=== PATIENT | female | born 1980 | race Caucasian/White ===

== ENCOUNTER 2019-09-16 11:29 | Outpatient (CLI) | payer BC, SELFPAY | END 2019-09-16 11:30 | disposition home or self-care (01) | LOC: CHSLAB 11:35 | PROVIDERS: PCP Nurse Practitioner Family; Visit Provider Specialist | DX: D22.61 Melanocytic nevi of right upper limb, including shoulder (principal) | CPT/HCPCS: 88305; 88342 ==

== ENCOUNTER 2019-11-22 01:14 | Outpatient (CLI) | payer BC, SELFPAY ==
[2019-11-22 16:42] LABS: SARS-CoV-2 RNA PCR Negative
== END 2019-11-22 01:15 | disposition home or self-care (01) ==
LOC: ANHCOVIDDT 01:14
PROVIDERS: PCP Nurse Practitioner Family; Visit Provider Surgery
DX: Z01.812 Encounter for preprocedural laboratory examination (principal); Z20.828 Contact with and (suspected) exposure to other viral communicable diseases
CPT/HCPCS: 87635; C9803; U0003

== ENCOUNTER 2019-11-25 00:19 | Day surgery (SDC) | payer BC, SELFPAY ==
[2019-11-12 15:27] VITALS: BMI 39.8
[2019-11-25 10:35] VITALS: BMI 38.7
[2019-11-25 11:02] VITALS: BP 123/85; PULSE 103; RESP 20; TEMP 36.6; O2SAT 99
[2019-11-25] MEDS: LACTATED RINGERS 1,000 ML 30 ML IV CONT (11:15)
--- NOTE | 2019-11-25 11:34 | WPDANESEPPF ---
Anes - Initial Pre Proc Eval Procedure: Operation Date: 11/25/19 12:00 Proposed Procedures p Excision of Superficial Lipoma/Skin Papilloma Right Upper Inner Thigh - Eric Parisi MD Date/Time: 11/25/19 11:34 Surgeon: Eric Parisi MD Pre Op Diagnosis: Right Thigh Lipoma/Skin Papilloma Patient Data Age: 39 Gender: F Height: 1.63 m Weight: 102.5 kg Last Vital Signs Temp 36.6 C 11/25/19 11:02 Pulse 103 H 11/25/19 11:02 Resp 20 11/25/19 11:02 BP 123/85 11/25/19 11:02 Pulse Ox 99 11/25/19 11:02 Allergies Allergy/AdvReac Type Severity Reaction Status Date / Time Sulfa (Sulfonamide Allergy Unknown Hives / Verified 11/25/19 10:59 Antibiotics) Red Face Sulfonamides Allergy Intermediate HIVES/RED Uncoded 11/25/19 10:59 FACE/BURNING Home Medications Medication Instructions Recorded Confirmed Type cholecalciferol (vitamin D3) 25 1,000 unit PO DAILY 04/29/19 11/25/19 History mcg (1,000 unit) capsule cyclobenzaprine 10 mg tablet 10 mg PO BID PRN tablet 04/29/19 11/25/19 History fexofenadine-pseudoephedrine ER 1 tablet PO DAILY 04/29/19 11/25/19 History 180 mg-240 mg tablet,ext.release 24 hr fluticasone propionate 50 1 spray NASAL DAILY #18.2 ml 04/29/19 11/25/19 Rx mcg/actuation nasal spray,suspension gabapentin 300 mg capsule 300 mg PO TID 04/29/19 11/25/19 History hydrocodone 10 mg-acetaminophen 1 tablet PO Q8H PRN 04/29/19 11/25/19 History 325 mg tablet multivitamin 1 tablet PO DAILY 04/29/19 11/25/19 History omeprazole 40 mg PO DAILY PRN 11/12/19 11/25/19 History Patient hx anesthesia problems: none Family hx anesthesia problems: none PMFSH Past Medical History Medical History (Updated 11/24/19 @ 09:51 by Fahad Garcia DO) Cervicalgia Chronic, continuous use of opioids TEODORO (generalized anxiety disorder) GERD (gastroesophageal reflux disease) Nicotine dependence with current use Obesity Radiculopathy, cervical region Social History Social History Years smoked: 20 Smoking status: Current every day smoker Alcohol intake: current Substance use: never Additional occupation/education comments: [employer] Gender identity (if verbalized by the patient): Female Spiritual care concerns: No Anes - Eval Final PreProcedure Day of Procedure 11/25/19 11:34 Patient weight: obese Heart: regular rate and rhythm Lungs: clear to auscultation and normal air movement Airway: Mallampati scale class II Neurological: alert and oriented Last oral intake: >/= 8 hours ASA classification: III Emergent: no Anesthetic plan: proceed Anesthesia type and monitoring: general GIVS and standard monitoring Informed Consent: The patient's anesthetic plan and its attendant risks and benefits were discussed with the patient/family/POA. Questions were solicited and answers provided to the satisfaction of the patient/family/POA.
--- NOTE | 2019-11-25 12:07 | WPDHPUPDATE1 ---
History and Physical Update Update Date/Time: 11/25/19 12:07 History and Physical has been reviewed, including an updated exam of the patient. There are NO changes in the patient's condition. Risks, benefits, and alternatives have been discussed and questions answered. Patient agrees to proceed with procedure.
[2019-11-25] MEDS: ceFAZolin 2 GM/D5W 50 ML 2 GM/50 ML BAG IVPB (12:24)
[2019-11-25] MEDS: BUPIVACAINE/EPINEPHRINE 0.5% 30 ML VIAL INFILTRATE (12:54)
[2019-11-25 13:30] VITALS: BP 85/50; PULSE 97; RESP 16; TEMP 36.3; O2SAT 97
--- NOTE | 2019-11-25 13:40 | P.OP_ITS ---
Procedure Note - Detailed Date of procedure: 11/25/19 Pre-op diagnosis: Right Thigh Lipoma/Skin Papilloma Post-op diagnosis: same Procedure performed: Excision of skin lesion and underlying lipoma 5 x 5 cm lipoma ( skin ellipse was 3 by 2.5 cm) Description of procedure: The patient was placed in the lithotomy position. After a surgical time out confirming patient and procedure the patient was prepped and draped in the usual sterile fashion. Local anesthetic was administered subcutaneously. The lesion measured 3.0 X 2.5 cm (Skin) and the fatty tumor 5.5 X 5.5 cm An elliptical incision was made around the lesion taking a thin margin c ircumferentially. I dissected down to the deep subcutaneous tissues and then completely excised the lesion. Bleeding was controlled with electrocautery. The wound was closed in two layers. An un-dyed 2-0 vicryl subcutaneous and deep dermal and then a 4-0 undyed Monocryl running subcuticular closure was completed. Surgical glue applied as dressing. Patient tolerated this well. Anesthesia: local and other (GIVS) Surgeon: Eric Parisi MD Composing Machine Operator: BELEM Carmona, OR 1st assist Estimated blood loss (mL): 5 Drains: No Packing: No Pathology: yes (Nodular skin lesion overlying the a lipoma) Complications: No immediate complications Condition: stable Disposition: same day Findings: No signs of infection. There was a nodular skin lesion which appeared to be filled with fatty tissue consistent with the upper portions of a underlying lipoma. There may be some chronic skin changes or epidermal cyst on the skin excised.
[2019-11-25 14:00] VITALS: BP 112/69; PULSE 76; RESP 14
--- NOTE | 2019-11-25 14:15 | SUR.PHASEII ---
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
[2019-11-25 14:30] VITALS: BP 115/79; PULSE 74; RESP 16
== END 2019-11-25 15:08 | disposition home or self-care (01) ==
PROVIDERS: PCP Nurse Practitioner Family; Visit Provider Surgery
PROC: (CPT 27337; principal; 2019-11-25 12:00)
DX: D17.23 Benign lipomatous neoplasm of skin and subcutaneous tissue of right leg (principal); L91.8 Other hypertrophic disorders of the skin; K21.9 Gastro-esophageal reflux disease without esophagitis; M54.12 Radiculopathy, cervical region; Z79.891 Long term (current) use of opiate analgesic; F17.210 Nicotine dependence, cigarettes, uncomplicated; E66.9 Obesity, unspecified; Z68.38 Body mass index [BMI] 38.0-38.9, adult
CPT/HCPCS: 27337; 88304; J0690; J1100; J2250; J2405; J2704; J3010; J7120

== ENCOUNTER 2020-03-09 10:11 | Outpatient (CLI) | payer BC, SELFPAY ==
--- NOTE | ~2020-03-09 | MM_ITS ---
EXAMINATION: MM screening lorene BI w jacqueline HISTORY: Screening mammogram TECHNIQUE: Craniocaudal and mediolateral oblique 3-D tomosynthesis images were obtained and synthetic 2-D images were generated. CAD analysis was submitted and interpreted. COMPARISON: None, baseline BREAST PARENCHYMAL COMPOSITION: There are scattered areas of fibroglandular density. FINDINGS: Scattered benign-appearing calcifications are present. There is no evidence of suspicious m ass, calcification, or architectural distortion to suggest malignancy in either breast. IMPRESSION: 1. No mammographic evidence of malignancy. 2. Recommend routine screening mammography in one year. BI-RADS Category 2: Benign finding(s). Reviewed, dictated and finalized at location A.
--- NOTE | ~2020-03-09 | XR_ITS ---
XR foot LT min 3V DATE: 03/09/2020 10:35 INDICATION: Left foot pain for 6 weeks TECHNIQUE: 4 views COMPARISON: None FINDINGS: Mild osteoarthritis at the first metatarsophalangeal joint. Prominent plantar and posterior calcaneal enthesopathy. No fracture, dislocation, periosteal reaction or bone destruction. IMPRESSION: Prominent plantar and posterior calcaneal enthesopathy Mild osteoarthritis at first metatarsophalangeal joint Reviewed, dictated and finalized at location B.
== END 2020-03-09 10:12 | disposition home or self-care (01) ==
PROVIDERS: PCP Nurse Practitioner Family; Visit Provider Nurse Practitioner Family
DX: Z12.31 Encounter for screening mammogram for malignant neoplasm of breast (principal); M79.672 Pain in left foot
CPT/HCPCS: 73630; 77063; 77067

== ENCOUNTER 2020-11-29 15:43 | Outpatient (CLI) | payer BC, SELFPAY ==
[2020-11-29 16:18] LABS: Basophils Absolute Auto 0.03 K/mm3 (0.00-0.10); Basophils Percent Auto 0.3 % (0.0-1.0); Eosinophils Absolute Auto 0.17 K/mm3 (0.02-0.50); Eosinophils Percent Auto 1.8 % (1.0-6.0); Hematocrit 37.1 % (35.0-49.0); Hemoglobin 11.7 g/dL (12.0-15.0); Immature Granulocyte Absolute 0.03 K/mm3 (0.00-0.00); Immature Granulocyte Percent A 0.3 % (0.0-0.0); Lymphocytes Absolute Auto 2.57 K/mm3 (1.10-4.50); Lymphocytes Percent Auto 27.5 % (18.0-42.0); Mean Corpuscular HGB Conc 31.5 g/dL (32.0-36.0); Mean Corpuscular Hemoglobin 28.2 pg (27.0-31.0); Mean Corpuscular Volume 89.4 fL (78.0-102.0); Mean Platelet Volume 8.8 fl (9.2-11.8); Monocytes Absolute Auto 0.66 K/mm3 (0.10-0.90); Monocytes Percent Auto 7.1 % (2.0-11.0); Neutrophils Absolute Auto 5.9 K/mm3 (1.7-7.2); Platelet Count Result 416 K/mm3 (150-420); Red Blood Count 4.15 M/mm3 (4.20-5.40); Red Cell Distribution Width 15.6 % (11.6-14.4); White Blood Count 9.3 K/mm3 (4.8-10.8)
[2020-11-29 17:42] LABS: Alanine Aminotransferase 37 U/L (14-59); Albumin Level 3.4 g/dL (3.4-5.0); Alkaline Phosphatase 116 U/L (46-116); Anion Gap 9 mmol/L (8-16); Aspartate Amino Transferase 18 U/L (15-37); Bilirubin,Total 0.2 mg/dL (0.00-1.00); Blood Urea Nitrogen 6 mg/dL (7-18); Calcium 8.7 mg/dL (8.5-10.1); Carbon Dioxide 27 mmol/L (21-32); Chloride 101 mmol/L (98-108); Estimated Glomerular Filt Rate > 60; Glucose 76 mg/dL (70-99); NT Pro B Type Natriuretic Pept 120 pg/mL (0-125); Osmolality Calculated 280 mOsm/kg (285-295); Potassium 4.3 mmol/L (3.5-5.1); Sodium 137 mmol/L (136-145); Thyroid Stimulating Hormone 1.52 uIU/mL (0.36-3.74); Total Protein 6.7 g/dL (6.4-8.2)
== END 2020-11-29 15:44 | disposition home or self-care (01) ==
LOC: CHSLAB 15:46
PROVIDERS: PCP Nurse Practitioner Family; Visit Provider Nurse Practitioner Family
DX: R60.0 Localized edema (principal)
CPT/HCPCS: 36415; 80053; 83880; 84443; 85025

== ENCOUNTER 2021-06-06 14:54 | Outpatient (CLI) | payer MEDICAID, SELFPAY ==
[2021-06-06 16:16] LABS: SARS-CoV-2 RNA PCR Positive (Negative)
== END 2021-06-06 14:55 | disposition home or self-care (01) ==
LOC: CHSLAB 14:56
PROVIDERS: PCP Nurse Practitioner Family; Visit Provider Nurse Practitioner Family
DX: U07.1 COVID-19 (principal); R09.81 Nasal congestion
CPT/HCPCS: C9803; U0003; U0005

== ENCOUNTER 2021-11-20 23:23 | Emergency (ER) | payer BC, OTHER, SELFPAY ==
--- NOTE | ~2021-11-20 | XR_ITS ---
EXAMINATION: XR hand LT min 3V DATE: 11/20/2021 23:53 INDICATION: Radial sided left hand pain post fall TECHNIQUE: Posteroanterior, oblique and lateral views of the left hand were obtained. COMPARISON: None. FINDINGS: Bone alignment is normal. No fracture. Polyarticular osteoarthritis, mild to moderate severity at the first carpometacarpal joint and mild at the triscaphe, first metacarpophalangeal and multiple interp halangeal joints. Soft tissues are unremarkable. IMPRESSION: 1. Polyarticular osteoarthritis, mild to moderate severity at the first carpometacarpal joint.. No ac neto osseous abnormality. Reviewed, dictated and finalized at location A. IMPRESSION: 1. Polyarticular osteoarthritis, mild to moderate severity at the first carpome tacarpal joint.. No acute osseous abnormality.
--- NOTE | 2021-11-20 23:29 | ED.FALL ---
HPI - Fall General Chief Complaint: Unspecified Stated Complaint: fell Time Seen by Provider: 11/20/21 23:30 Source: patient History of Present Illness HPI Narrative: 41-year-old female with a history of GERD, cervical radiculopathy, fell 2 days ago after she missed the last step and fell on her outstretched arms. No head injury. No loss of consciousness. She presents to the ER with -- pain in the left over thenar eminence -- pain in right hand -- bilateral knee pain with left greater than the right. The patient is able to walk without any difficulty. -- Extensive abrasions over both knees, hands, left leg, left foot and right thigh complaint: fall Onset (ago): day(s) ( 2 days ago) Fall from: down stairs (#) Fall witnessed: no Place fall occurred: home Loss of consciousness: none Prolonged down time: no Symptoms prior to fall: none Context: tripped/slipped Location of injury - extremities: Left: lower leg and ankle, Right: thigh and Bilateral: hand and knee Severity: mild Quality: aching Associated symptoms (after fall): denies Related Data Home Medications Medication Instructions Recorded Confirmed gabapentin 300 mg capsule 300 mg PO TID 04/29/19 02/03/20 multivitamin (One Daily 1 tablet PO DAILY 04/29/19 02/03/20 Multivitamin tablet) cyclobenzaprine 10 mg tablet 10 mg PO TID PRN 09/13/20 tramadol 50 mg tablet 50 mg PO QID PRN 11/29/20 Allergies Allergy/AdvReac Type Severity Reaction Status Date / Time Sulfa (Sulfonamide Allergy Unknown Hives / Verified 11/20/21 23:36 Antibiotics) Red Face Sulfonamides Allergy Intermediate HIVES/RED Uncoded 11/20/21 23:36 FACE/BURNING Review of Systems Review of Systems: All systems reviewed & are unremarkable except as noted in HPI and below Constitutional: Constitutional: Reports as per HPI and Reports no additional constitutional complaints Eyes: Eyes: Reports as per HPI and Reports no additional eye complaints ENT: Reports system reviewed and no additional complaints, except as documented and Reports as per HPI Cardiovascular: Cardiovascular: Reports as per HPI and Reports no additional cardiovascular complaints Respiratory: Respiratory: Reports as per HPI and Reports no additional respiratory complaints Gastrointestinal: Gastrointestinal: Reports as per HPI and Reports no additional gastrointestinal complaints Genitourinary: Genitourinary: Reports no additional female genitourinary complaints and Reports as per HPI Musculoskeletal: Musculoskeletal: Reports no additional musculoskeletal complaints Comments: complains bilateral knee pain and bilateral hand pain worse on left thenar eminence Integumentary/Breasts: Comments: extensive abrasions over left foot, left lateral leg and right thigh. Minimal abrasions over both hands and knees Neurologic: Reports system reviewed and no additional complaints, except as documented and Reports as per HPI Psychiatric: Psychiatric: Reports no additional psychiatric complaints and Reports as per HPI Endocrine: Endocrine: Reports no additional endocrine complaints and Reports as per HPI Hematologic/Lymphatic: Hematologic/Lymphatic: Reports no additional hematologic/lymphatic complaints and Reports as per HPI Allergic/Immunologic: Allergic/Immunologic: Reports no additional allergic/immunologic complaints and Reports as per HPI PMFSH Past Medical History Medical History Allergic rhinitis Callus (Unknown) Cervicalgia Chronic, continuous use of opioids Dyspnea on exertion Enthesopathy of left foot Fibroma of right thigh TEODORO (generalized anxiety disorder) GERD (gastroesophageal reflux disease) Left foot pain Lower extremity edema Nicotine dependence with current use Obesity Papilloma Radiculopathy, cervical region Right ear pain Right foot pain Sinusitis Sinusitis Wound dehiscence Surgical History Surgical History (Reviewed 11/20/21 @ 23:4
[2021-11-20 23:31] VITALS: BP 145/100; PULSE 105; RESP 16; TEMP 36.4; O2SAT 98
[2021-11-21] MEDS: HYDROcodone/acetaminophen (*CRX) 5-325 MG TABLET 1 TAB PO (00:32)
[2021-11-21 00:42] VITALS: BP 131/82; PULSE 95; RESP 16; O2SAT 99
== END 2021-11-21 00:43 | disposition home or self-care (01) ==
PROVIDERS: Emergency Provider Internal Medicine Critical Care Medicine; PCP Nurse Practitioner Family
DX: M79.642 Pain in left hand (principal); T14.8XXA Other injury of unspecified body region, initial encounter; W19.XXXA Unspecified fall, initial encounter
CPT/HCPCS: 73130; 99283; A9270

== ENCOUNTER 2021-11-30 18:43 | Outpatient (CLI) | payer BC, OTHER, SELFPAY ==
--- NOTE | ~2021-11-30 | XR_ITS ---
EXAM: XR ankle LT min 3V DATE: 11/30/2021 19:05 HISTORY: fall 2 weeks ago causing ankle pain and swelling . COMPARISON: None available. FINDINGS: Normal mineralization. No fracture or dislocation. No lytic or blastic lesion. Joint space s are maintained. Marked plantar and Achilles enthesopathy. No erosion or periosteal change. Soft tis sues within normal limits. IMPRESSION: No acute or subacute osseous finding in the left ankle. Reviewed, dictated and finalized at location K.
== END 2021-11-30 18:44 | disposition home or self-care (01) ==
LOC: CHSIMG 18:45
PROVIDERS: PCP Nurse Practitioner Family; Visit Provider Nurse Practitioner Family
DX: S93.402A Sprain of unspecified ligament of left ankle, initial encounter (principal)
CPT/HCPCS: 73610

== ENCOUNTER 2022-06-22 09:44 | Outpatient (CLI) | payer BC, OTHER, SELFPAY ==
[2022-06-22 10:00] LABS: Hematocrit 40.5 % (35.0-49.0); Hemoglobin 13.2 g/dL (12.0-15.0); Mean Corpuscular HGB Conc 32.6 g/dL (32.0-36.0); Mean Corpuscular Hemoglobin 30.8 pg (27.0-31.0); Mean Corpuscular Volume 94.6 fL (78.0-102.0); Mean Platelet Volume 8.8 fl (9.2-11.8); Platelet Count Result 348 K/mm3 (150-420); Red Blood Count 4.28 M/mm3 (4.20-5.40); Red Cell Distribution Width 13.6 % (11.6-14.4); White Blood Count 9.8 K/mm3 (4.8-10.8)
[2022-06-22 10:14] LABS: Add Urine Microscopic? NO; Appearance Urine Clear (Clear); Bilirubin Urine Negative (Negative); Blood Urine Negative (Negative); Color Urine Light Yellow (Yellow); Glucose Urine UA Negative (Negative); Ketones Urine Negative (Negative); Leukocyte Esterase Ur Negative LEU/UL (Negative); Nitrate Urine Negative (Negative); Protein Urine Negative (Negative); Urobilinogen Urine 0.2 mg/dL (0.2-1.0)
[2022-06-22 10:36] LABS: Alanine Aminotransferase 31 U/L (14-59); Albumin Level 3.4 g/dL (3.4-5.0); Alkaline Phosphatase 124 U/L (46-116); Anion Gap 7 mmol/L (8-16); Aspartate Amino Transferase 16 U/L (15-37); Bilirubin,Total 0.3 mg/dL (0.00-1.00); Blood Urea Nitrogen 8 mg/dL (7-18); Calcium 8.5 mg/dL (8.5-10.1); Carbon Dioxide 28 mmol/L (21-32); Chloride 103 mmol/L (98-108); Estimated Glomerular Filt Rate > 60; Glucose 94 mg/dL (70-99); Osmolality Calculated 284 mOsm/kg (285-295); Potassium 4.4 mmol/L (3.5-5.1); Sodium 138 mmol/L (136-145); Total Protein 7.1 g/dL (6.4-8.2)
== END 2022-06-22 09:45 | disposition home or self-care (01) ==
LOC: CHSLAB 09:48
PROVIDERS: PCP Nurse Practitioner Family; Visit Provider Nurse Practitioner Family
DX: M54.50 Low back pain, unspecified (principal)
CPT/HCPCS: 36415; 80053; 81003; 85027

== ENCOUNTER 2022-06-28 12:23 | Outpatient (CLI) | payer BC, OTHER, SELFPAY ==
[2022-06-28 12:57] LABS: Pregnancy On Board Control Positive; Urine Pregnancy Test Negative
[2022-06-28 13:23] LABS: Alkaline Phosphatase 113 U/L (46-116)
[2022-07-02 22:05] LABS: Vitamin D 25 Hydroxy 6 ng/mL (30-100)
[2022-07-04 13:25] LABS: Parathyroid Intact 63 pg/mL (14-64)
[2022-07-05 12:11] LABS: Alkaline Phosphatase 97 U/L (31-125); Macrohepatic Isoenzymes 0 % (<=0)
== END 2022-06-28 12:24 | disposition home or self-care (01) ==
LOC: CHSLAB 12:24
PROVIDERS: PCP Nurse Practitioner Family; Visit Provider Nurse Practitioner Family
DX: M54.50 Low back pain, unspecified (principal); M54.2 Cervicalgia; R74.8 Abnormal levels of other serum enzymes; Z79.899 Other long term (current) drug therapy
CPT/HCPCS: 36415; 81025; 82306; 83970; 84075; 84080

== ENCOUNTER 2022-12-04 16:46 | Outpatient (CLI) | payer OTHER, BC, SELFPAY ==
--- NOTE | ~2022-12-04 | XR_ITS ---
EXAM: XR ankle RT min 3V DATE: 12/04/2022 17:13 HISTORY: M76.60 - Achilles tendinitis, unspecified leg . COMPARISON: None available. FINDINGS: Normal mineralization. No fracture or dislocation. No lytic or blastic lesion. Mild scatte red degenerative changes. Moderate Achilles and plantar enthesopathy. No erosion or periosteal change . Soft tissues within normal limits. IMPRESSION: Moderate Achilles and plantar enthesopathy. Reviewed, dictated and finalized at location K.
[2022-12-06 21:33] LABS: Vitamin D 25 Hydroxy 28 ng/mL (30-100)
== END 2022-12-04 16:47 | disposition home or self-care (01) ==
LOC: CHSLAB 16:53
PROVIDERS: PCP Nurse Practitioner Family; Visit Provider Nurse Practitioner Family
DX: M76.60 Achilles tendinitis, unspecified leg (principal); E55.9 Vitamin D deficiency, unspecified
CPT/HCPCS: 36415; 73610; 82306

== ENCOUNTER 2022-12-18 16:08 | Outpatient (RCR) | payer BC, OTHER, SELFPAY ==
--- NOTE | 2022-12-18 17:16 | PTOPEVAL1 ---
Assessment and note entered by Adela Carvajal, PT Evaluation Information Assessment Status Evaluation Diagnosis Achilles Tendonitis Subjective Information Elisabet Bruce reports she started having right heel pain about 3 months ago. She states pain started mild and has gradually worsened. She notes pain is worse with standing and walking. She states pain starts after an hour of standing and 1 -2 minutes of walking. She works at [employer] and has to stand and walk all day. She is able to make it through a full day but has increased pain by the end. She is using ice packs on night and occasionally voltaren. She is also on tramadol, flexiril, and gabapentin as well for a neck issue. She also notes increased pain with stairs and has to take them one at a time. She has 4 steps to get in her home. She has been using custom inserts for approximately 2 years due to other foot and ankle pain. Reported Pain Level Pain Score 9: Self Report Assessment PT Clinical Summary Elisabet Bruce presents with right heel pain and has been diagnosed with achilles tendonitis. She is reporting difficulty with walking, standing, stair negotiation, and sleeping. She works as [employer] and is required to stand and walk for 8 hours a day. She objectively demonstrates tenderness on the distal 1/3 of the right achilles tendon, decreased and painful right ankle AROM, decreased right gastrocnemius and soleus flexibility, decreased right ankle strength, decreased single limb balance, and impaired gait. She will benefit from skilled PT to address these limitations and return her to her PLOF. Plan of Care Interventions Electrical Stimulation,Hot Pack/Cold Pack,Manual Therapy,Neuro Re-education,Patient/Caregiver Educati,Therapeutic Activities,Therapeutic Exercise PT Services Indicated Yes Treatment Frequency and 3 times a week for 6 visits then 2 times a week Duration for 6 visits to total 12 visits These treatments will address the objective and functional deficits as defined above. The patient will be advanced safely and appropriately in order for the patient to progress towards his/her prior level of function. Additional exercises will be introduced and as well as a comprehensive home exercise program upon discharge, if needed, ?to ensure carryover of functional gains achieved in the clinic. This treatment plan has been reviewed and agreement upon by the patient.
--- NOTE | 2022-12-18 17:16 | OPREHPOC ---
Outpatient Therapy Plan of Care This is a Multidisciplinary Plan of Care that may contain components documented by all disciplines (PT, OT, and ST.) PT Problem 1 PT Problem #1 Knowledge Deficit PT Goal 1 Goal The patient will be independent in a home exercise program for flexibility and strengthening to continue after discharge from formal PT. Target Visit 12 PT Problem 2 PT Problem #2 Pain PT Goal 1 Goal The patient will report no greater than 2/10 right heel pain while walking to improve ability to perform job duties. Target Visit 12 PT Problem 3 PT Problem #3 Impaired Range of Motion PT Goal 1 Goal The patient will demonstrate at least 5 degrees right ankle dorsiflexion with the knee extended and 10 degrees with the knee flexed indicating improved flexibility in the gastroc-soleus complex . Target Visit 12 PT Problem 4 PT Problem #4 Impaired Gait PT Goal 1 Goal The patient will demonstrate heel to toe gait pattern with equal stance time and stride length. Target Visit 12 PT Problem 5 PT Problem #5 Impaired Functional Mobil PT Goal 1 Goal The patient will ambulate at least 1,200 feet during the 6 minute walk test to improve community ambulation. Target Visit 12
--- NOTE | 2023-01-18 16:53 | PTOPPROGNS ---
Assessment and note entered by Adela Carvajal, PT Evaluation Information Assessment Status Progress Diagnosis achilles tendonitis Onset 12/14/22 Subjective Information Elisabet Bruce reports her right heel pain has improved a lot since beginning PT. She notes a 1/ 10 pain currently. She does still get pain up to a 2/10 when she has been standing or walking all day. Assessment PT Clinical Summary Elisabet Bruce has completed 10 skilled PT visits for right Achilles tendonitis. She reports significantly less pain since initiating PT however, she still has 2/10 pain after prolonged standing and walking at work. She is demonstrating improved R gastrocnemius strength, improved right ankle flexibility, and less tenderness at the Achilles tendon. She continues to demonstrate decreased right gastrocnemius strength, decreased right gastrocnemius and soleus flexibility, and tenderness at the distal 1/4 of the Achilles tendon. She will continue to benefit from skilled PT to further improve these deficits. Plan of Care Interventions Manual Therapy,Patient/Caregiver Educati, Therapeutic Activities,Therapeutic Exercise PT Services Indicated Yes Treatment Frequency and Continue POC for 2 additional visits. Duration These treatments will address the objective and functional deficits as defined above. The patient will be advanced safely and appropriately in order for the patient to progress towards his/her prior level of function. Additional exercises will be introduced and as well as a comprehensive home exercise program upon discharge, if needed, ?to ensure carryover of functional gains achieved in the clinic. This treatment plan has been reviewed and agreement upon by the patient.
--- NOTE | 2023-01-24 17:40 | OPREHPOC ---
Outpatient Therapy Plan of Care This is a Multidisciplinary Plan of Care that may contain components documented by all disciplines (PT, OT, and ST.) PT Problem 1 PT Problem #1 Knowledge Deficit PT Goal 1 Goal The patient will be independent in a home exercise program for flexibility and strengthening to continue after discharge from formal PT. Target Visit 12 Progress Met PT Problem 2 PT Problem #2 Pain PT Goal 1 Goal The patient will report no greater than 2/10 right heel pain while walking to improve ability to perform job duties. Target Visit 12 Progress Met PT Problem 3 PT Problem #3 Impaired Range of Motion PT Goal 1 Goal The patient will demonstrate at least 5 degrees right ankle dorsiflexion with the knee extended and 10 degrees with the knee flexed indicating improved flexibility in the gastroc-soleus complex . Target Visit 12 Progress Partially Met PT Problem 4 PT Problem #4 Impaired Gait PT Goal 1 Goal The patient will demonstrate heel to toe gait pattern with equal stance time and stride length. Target Visit 12 Progress Met PT Problem 5 PT Problem #5 Impaired Functional Mobil PT Goal 1 Goal The patient will ambulate at least 1,200 feet during the 6 minute walk test to improve community ambulation. Target Visit 12 Progress Met
--- NOTE | 2023-01-24 17:40 | PTOPDC ---
Assessment and note entered by Yamilex Handy, SPT Evaluation Information Assessment Status Re-evaluation Diagnosis achilles tendonitis Onset 12/14/22 Subjective Information Patient reports her pain levels have greatly improved since starting physical therapy. She states she currently has some pain on the inside of her R heel, but notes that she only has tenderness in the posterior lower heel. Patient states she is now able to stand and walk at work all day without much pain, whereas previously she was in significant pain about one hour into work. Reported Pain Level Pain Score 2: Self Report Assessment PT Clinical Summary Elisabet Bruce has completed 12 skilled PT visits for right Achilles tendonitis and made great progress towards goals. Patient met or partially met all goals. She reports that she has been able to return to house hold and work tasks at [employer] with no increase in pain. Patient is independent with HEP and is appropriate for DC at this time. Plan of Care PT Services Indicated No
== END 2023-01-24 10:21 | disposition home or self-care (01) ==
LOC: CHSPT 16:08
PROVIDERS: PCP Family Medicine; Visit Provider Nurse Practitioner Family
DX: M76.60 Achilles tendinitis, unspecified leg (principal); M77.8 Other enthesopathies, not elsewhere classified
CPT/HCPCS: 97014; 97110; 97112; 97140; 97161; G0283

== ENCOUNTER 2023-06-28 16:52 | Outpatient (CLI) | payer BC, SELFPAY ==
[2023-06-28 17:07] LABS: Basophils Absolute Auto 0.02 K/mm3 (0.00-0.10); Basophils Percent Auto 0.2 % (0.0-1.0); Eosinophils Absolute Auto 0.08 K/mm3 (0.02-0.50); Eosinophils Percent Auto 0.8 % (1.0-6.0); Hematocrit 39.7 % (35.0-49.0); Hemoglobin 12.6 g/dL (12.0-15.0); Immature Granulocyte Absolute 0.03 K/mm3 (0.00-0.00); Immature Granulocyte Percent A 0.3 % (0.0-0.0); Lymphocytes Absolute Auto 3.07 K/mm3 (1.10-4.50); Lymphocytes Percent Auto 31.2 % (18.0-42.0); Mean Corpuscular HGB Conc 31.7 g/dL (32.0-36.0); Mean Corpuscular Hemoglobin 30.7 pg (27.0-31.0); Mean Corpuscular Volume 96.8 fL (78.0-102.0); Mean Platelet Volume 8.6 fl (9.2-11.8); Monocytes Absolute Auto 0.59 K/mm3 (0.10-0.90); Neutrophils Percent Auto 61.5 % (50.0-70.0); Platelet Count Result 372 K/mm3 (150-420); Red Cell Distribution Width 12.6 % (11.6-14.4); White Blood Count 9.8 K/mm3 (4.8-10.8)
[2023-06-28 17:33] LABS: Hemoglobin A1C 5.5 % (<5.7)
[2023-06-28 17:41] LABS: Alanine Aminotransferase 48 U/L (14-59); Albumin Level 3.4 g/dL (3.4-5.0); Alkaline Phosphatase 104 U/L (46-116); Anion Gap 8 mmol/L (8-16); Aspartate Amino Transferase 23 U/L (15-37); Bilirubin,Total 0.3 mg/dL (0.00-1.00); Blood Urea Nitrogen 12 mg/dL (7-18); Calcium 8.9 mg/dL (8.5-10.1); Carbon Dioxide 29 mmol/L (21-32); Chloride 99 mmol/L (98-108); Cholesterol 273 mg/dL (0-200); Estimated Glomerular Filt Rate > 60; Glucose 83 mg/dL (70-99); HDL Direct 34 mg/dL (40-60); LDL Cholesterol Calculated 166 mg/dL (<130); Osmolality Calculated 280 mOsm/kg (285-295); Potassium 4.2 mmol/L (3.5-5.1); Sodium 136 mmol/L (136-145); Thyroid Stimulating Hormone Reflex 1.64 u/IU/mL (0.36-3.74); Total Protein 7.4 g/dL (6.4-8.2); Triglycerides 367 mg/dL (0-150)
== END 2023-06-28 16:53 | disposition home or self-care (01) ==
LOC: CHSLAB 16:57
PROVIDERS: PCP Nurse Practitioner Family; Visit Provider Nurse Practitioner Family
DX: Z00.00 Encounter for general adult medical examination without abnormal findings (principal); R73.09 Other abnormal glucose
CPT/HCPCS: 36415; 80053; 80061; 83036; 84443; 85025

== ENCOUNTER 2023-11-12 16:14 | Outpatient (CLI) | payer BC, SELFPAY ==
[2023-11-12 17:13] LABS: Alanine Aminotransferase 34 U/L (14-59); Albumin Level 3.3 g/dL (3.4-5.0); Alkaline Phosphatase 94 U/L (46-116); Anion Gap 13 mmol/L (4-12); Aspartate Amino Transferase 19 U/L (15-37); Bilirubin,Total 0.4 mg/dL (0.00-1.00); Blood Urea Nitrogen 12 mg/dL (7-18); Calcium 8.5 mg/dL (8.5-10.1); Carbon Dioxide 24 mmol/L (21-32); Chloride 102 mmol/L (98-108); Cholesterol 245 mg/dL (0-200); Estimated Glomerular Filt Rate 60; Glucose 121 mg/dL (70-99); HDL Direct 39 mg/dL (40-60); Hemoglobin A1C 5.7 % (<5.7); LDL Cholesterol Calculated 155 mg/dL (<130); Osmolality Calculated 288 mOsm/kg (285-295); Potassium 3.7 mmol/L (3.5-5.1); Sodium 139 mmol/L (136-145); Total Protein 7.1 g/dL (6.4-8.2); Triglycerides 255 mg/dL (0-150)
[2023-11-13 11:39] LABS: FSH 7.5 mIU/mL; LH 5.3 mIU/mL
[2023-11-17 21:09] LABS: Estradiol, Ultrasensitive 87 pg/mL
== END 2023-11-12 16:15 | disposition home or self-care (01) ==
PROVIDERS: PCP Nurse Practitioner Family; Visit Provider Nurse Practitioner Family
DX: Z00.00 Encounter for general adult medical examination without abnormal findings (principal); R73.09 Other abnormal glucose; R61 Generalized hyperhidrosis; E78.5 Hyperlipidemia, unspecified
CPT/HCPCS: 36415; 80053; 80061; 82670; 83001; 83002; 83036

== ENCOUNTER 2024-04-21 12:09 | Outpatient (CLI) | payer BC, SELFPAY ==
[2024-04-21 13:39] LABS: Alanine Aminotransferase 29 U/L (14-59); Albumin Level 3.2 g/dL (3.4-5.0); Alkaline Phosphatase 114 U/L (46-116); Anion Gap 8 mmol/L (4-12); Aspartate Amino Transferase 17 U/L (15-37); Bilirubin,Total 0.3 mg/dL (0.00-1.00); Blood Urea Nitrogen 10 mg/dL (7-18); Calcium 8.7 mg/dL (8.5-10.1); Carbon Dioxide 28 mmol/L (21-32); Chloride 105 mmol/L (98-108); Cholesterol 167 mg/dL (0-200); Estimated Glomerular Filt Rate > 60; Glucose 82 mg/dL (70-99); HDL Direct 39 mg/dL (40-60); LDL Cholesterol Calculated 94 mg/dL (<130); Osmolality Calculated 290 mOsm/kg (285-295); Potassium 4.4 mmol/L (3.5-5.1); Sodium 141 mmol/L (136-145); Total Protein 6.9 g/dL (6.4-8.2); Triglycerides 171 mg/dL (0-150)
[2024-04-21 13:52] LABS: Hemoglobin A1C 5.7 % (<5.7)
[2024-04-23 02:48] LABS: Vitamin D 25 Hydroxy 31 ng/mL (30-100)
== END 2024-04-21 12:10 | disposition home or self-care (01) ==
PROVIDERS: PCP Nurse Practitioner Family; Visit Provider Nurse Practitioner Family
DX: Z00.00 Encounter for general adult medical examination without abnormal findings (principal); R53.83 Other fatigue; E78.5 Hyperlipidemia, unspecified; R73.09 Other abnormal glucose
CPT/HCPCS: 36415; 80053; 80061; 82306; 83036

== ENCOUNTER 2024-05-19 16:31 | Outpatient (CLI) | payer BC, SELFPAY ==
--- NOTE | 2024-05-19 16:48 | ECG_ITS ---
Test Date: 2024-05-19 17:11:07 Measurements Intervals [place] Rate: 92 P: 67 MO: 155 QRS: 53 QRSD: 89 T: 55 QT: 350 QTc: 434 Interpretive Statements SINUS RHYTHM No previous ECG available for comparison Electronically Signed On 05-20-2024 14:45:43 SURGICAL SCHEDULER by Lorenzo Kaur M.D.
[2024-05-19 17:20] LABS: NT Pro B Type Natriuretic Pept 37 pg/mL (0-125); Troponin I 4.3 ng/L (0.00-60.4)
== END 2024-05-19 16:32 | disposition home or self-care (01) ==
PROVIDERS: PCP Nurse Practitioner Family; Visit Provider Nurse Practitioner Family
DX: R06.01 Orthopnea (principal)
CPT/HCPCS: 36415; 83880; 84484; 93005

== ENCOUNTER 2024-09-03 12:12 | Outpatient (CLI) | payer BC, SELFPAY ==
[2024-09-03 12:29] LABS: Basophils Absolute Auto 0.02 K/mm3 (0.00-0.10); Basophils Percent Auto 0.3 % (0.0-1.0); Eosinophils Absolute Auto 0.21 K/mm3 (0.02-0.50); Eosinophils Percent Auto 3.3 % (1.0-6.0); Hematocrit 37.8 % (35.0-49.0); Hemoglobin 12.2 g/dL (12.0-15.0); Immature Granulocyte Absolute 0.03 K/mm3 (0.00-0.00); Immature Granulocyte Percent A 0.5 % (0.0-0.0); Lymphocytes Absolute Auto 1.92 K/mm3 (1.10-4.50); Lymphocytes Percent Auto 29.9 % (18.0-42.0); Mean Corpuscular HGB Conc 32.3 g/dL (32-36); Mean Corpuscular Hemoglobin 31.6 pg (27.0-31.0); Mean Corpuscular Volume 97.9 fL (78.0-102.0); Mean Platelet Volume 8.6 fl (9.2-11.8); Monocytes Absolute Auto 0.36 K/mm3 (0.10-0.90); Monocytes Percent Auto 5.6 % (2.0-11.0); Neutrophils Absolute Auto 3.89 K/mm3 (1.70-7.20); Neutrophils Percent Auto 60.4 % (50.0-70.0); Platelet Count Result 348 K/mm3 (150-420); Red Blood Count 3.86 M/mm3 (4.20-5.40); Red Cell Distribution Width 12.9 % (11.6-14.4); White Blood Count 6.4 K/mm3 (4.8-10.8)
[2024-09-03 12:37] LABS: Hemoglobin A1C 6.1 % (<5.7)
[2024-09-03 13:22] LABS: Alanine Aminotransferase 44 U/L (14-59); Albumin Level 3.3 g/dL (3.4-5.0); Alkaline Phosphatase 164 U/L (46-116); Anion Gap 6 mmol/L (4-12); Aspartate Amino Transferase 23 U/L (15-37); Bilirubin,Total 0.3 mg/dL (0.00-1.00); Blood Urea Nitrogen 10 mg/dL (7-18); Carbon Dioxide 28 mmol/L (21-32); Chloride 104 mmol/L (98-108); Cholesterol 195 mg/dL (0-200); Estimated Glomerular Filt Rate > 60; Glucose 123 mg/dL (70-99); HDL Direct 34 mg/dL (40-60); LDL Cholesterol Calculated 104 mg/dL (<130); Osmolality Calculated 286 mOsm/kg (285-295); Potassium 4.7 mmol/L (3.5-5.1); Sodium 138 mmol/L (136-145); Triglycerides 283 mg/dL (0-150)
--- OUTSIDE RECORDS SUMMARY | 2024-09-03 13:23 | XMS_ITS | Clinical Summary ---
Author Organization [facility] Address [address] [place] [id number] Care Team Providers Care Script Girl Name Role Phone None, Provider MD Primary Care Provider Unavaila ble Allergies Active Allergy Reactions Criticality Noted Date Comments Sulfa Antibiotics Itching Medium 08/01/2018 Burning from the inside out Medications No known medications Social History Tobacco Use Types Packs/Day Years Used Date Smoking Tobacco: Every Day Cigarettes Smokeless Tobacco: Current Comments Unknown Sex and Gender Information Value Date Recorded Sex Assigned at Not on file Legal Sex Female 1:11 PM [employer] Gender Identity Not on file Sexual Orientation Not on file Last Filed Vital Signs Vital Sign Reading Time Taken Comments Blood Pressure 127/81 06/10/2020 8: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 Pulse 80 06/10/2020 8: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 Temperature - - Respiratory Rate 16 06/10/2020 8: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 Oxygen Saturation 99% 06/10/2020 8: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 Inhaled Oxygen Concentration - - Weight 103.9 kg (229 lb) 06/10/2020 8:10 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 Height 162.6 cm (5' 4 ) 06/10/2020 8:10 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 Body Mass Index 39.31 06/10/2020 8:10 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 Plan of Treatment Health Maintenance Due Date Last Done Comments Cervical Cancer Screening Pap Smear (Age 30 to 64) Every 3 Years 1978 Colorectal Cancer Screening Colonoscopy (10 Years) 1978 Annual Physical 1981 Pneumococcal Vaccine: Pediatrics (0 to 5 Years) and At-Risk Patients (6 to 64 Years) (1 of 2 - PCV) 02/09/1984 Hepatitis C 02/09/1996 DTaP, Tdap and Td Vaccines (1 - Tdap) 1997 10/12/1982, 01/01/1981, 10/11/1979, Additional history exists Hepatitis B Vaccines (1 of 3 - 19+ 3-dose series) 1997 Cervical Cancer Screening Pap with HPV Testing (Age 30 to 64) Every 5 Years 02/09/2008 Cervical Cancer Screening with HPV 02/09/2008 Mammogram Screening 2018 COVID-19 Vaccine ( season) 2024 Influenza Adult (#1) 2024 Meningococcal B Vaccine Aged Out No l onger eligible based on patient's age to complete this topic Meningococcal Vaccine Aged Out No belia rosalva eligible based on patient's age to complete this topic RSV Immunizations Under 20 Months Aged Out No longer eligible based on patient's age to complete this topic [place] [place] [address] Care Teams Script Girl Relationship Specialty Start Date End Date None, Provider, PCP - General 07/30/18
--- OUTSIDE RECORDS SUMMARY | 2024-09-03 13:23 | XMS_ITS | Data Portability ---
Author Organization [facility], [address] [place] [address] ([place]) Address [address] [place] [address] [address] [place] [address] Care Team Providers Care Dairy Feed Mixing Operator Name Role Phone RENAY ALFARO Primary Care Provider [phone] Assessment Encounter Date Assessment Date Assessment LastModified by Organization Details LastModified Time 02/15/2024 02/15/2024 IMPRESSION: 1. Cervical pain with right-sided radiculopathy secondary to degenerative disk disease at C5-6 helped by previous steroid injections. MANAGEMENT PLAN: 1. She would like to proceed with a steroid injection at C5-6 on the right side, which we will arrange. 2. Continue with the gabapentin, flexeril, and Tramadol. 3. We will see her back in 6 months. [email or web address] Not available 02/15/2024 20:03:43 08/19/2024 08/19/2024 IMPRESSION: C5-6 degenerative disc disease and C6-7 stenosis producing right-sided radiculopathy. MANAGEMENT PLAN: 1. I will arrange for her to have a cervical epidural injection on the right side at C5-6 level. 2. Continue with the medications; gabapentin, tramadol, and Flexeril p.r.n. 3. We will see her back in 6 months unless the symptoms precipitates in spite of getting the injection. [email or web address] Not available 08/21/2024 12:42:24 Plan of Treatment Reminders Order Date Submit Date Provider Last Modified By Organization Details Last Modified Time Details Appointments [facility] Patient 15.EST 2024 11:30A M Dr. Fanny Saenz Not available Not available Not available Lab None recorded . Referral None recorded . Procedures None recorded . Surgeries None recorded . Imaging None recorded . Medication Orders gabapent in 400 mg capsule 2023 [facility] [place], [id number], 02/15/2024 12:11:07 cyclobegaurav zaprine 10 mg tablet 2023 024 [facility] [place], [phone], 02/15/2024 12:11:09 tramadol 50 mg tablet 2023 024 [facility] [place], [id number], 02/15/2024 12:15:16 Patient TargetsNo targets recorded. Patient InstructionsNo instructions recorded. Reason for Referral None Reported. Results Created Date Observation Date Name Description Value Unit Range Abnormal Flag Note LastModifiedBy Organization Detail LastModifiedTime 02/26/20 24 02/26/2024 pregn anup test, urine HCG negati ve Not Available Administrat [facility] e Office ([place]) [address] [place] [address], [phone], 02/26/2024 15:51:10 Result Notes None recorded. Problems Name Problem SNOMED Code Status Onset Date Resolution Date Notes Provider Name and Address Organization Details Recorded Time Cervical radiculopathy 53173828 [facility]27 Problem Notes None recorded. Procedures Surgical History Date Name Laterality Status Provider Name and Address Organization Details Recorded Time [place] Operative Report completed Fanny Saenz MD [address] [place] [address], [phone], [facility] 02/26/2024 16:16:31 Imaging Results None recorded. Procedure Notes None recorded. Medical Equipment None Reported. Allergies Allergen ID Allergen Name Allergen Category Reaction Reaction Severity Criticality Documentation Date Start Date Code Code System Note Provider Name and Address Organization Details Recorded Time 675022 Substance with sulfonami de structure and antibacte rial mechanism of action (substanc e) medicatio n Not available Not available Not available 07/09/20232017 16663 8003 SNOMED Not Available Not Available Not Available Medications Name Sig Start Date Stop Date Status Note LastModified by Organization Details LastModified Time cyclobenzap rine 10 mg tablet TAKE ONE TABLET BY MOUTH THREE TIMES A DAY 2024 active Not Available Not Available Not Avai lable venlafaxine ER 75 mg capsule,ext ended release 24 hr active Not Available Not Available Not Available doxycycline hyclate 100 mg capsule 02/14 completed Not Available Not Available Not Available atorvastati n 20 mg tablet active Not Available Not Available Not Available nicotine 14 mg/24 hr daily transdermal patch 02/14 completed Not Available Not Available Not Available trazodone 50 mg tablet TAKE 1 TABLET (50 MG) BY ORAL ROUTE ONCE DAILY AT BEDTIME active Not Available Not Available No t Available azithromyci n 250 mg tablet TAKE 2 TABLETS BY MOUTH TODAY, THEN TAKE 1 TABLET DAILY FOR 4 DAYS DIRECTED 08/19 completed Not Available Not Available Not Available lisinopril 20 mg tablet 08/19 completed Not Available Not Available Not Available gabapentin 400 mg capsule Take 1 capsule 3 times a day by oral route for 90 days. active Not Available Not Available No t Available metformin 850 mg tablet active Not Available Not Available Not Available venlafaxine ER 150 mg capsule,ext ended release 24 hr 08/19 completed Not Available Not Available Not Available omeprazole 40 mg capsule,del ayed release active Not Available Not Available Not Available tramadol 50 mg tablet TAKE ONE TABLET BY MOUTH EVERY SIX HOURS 2024 active Not Available Not Available Not Avai lable trazodone 100 mg tablet 02/14 completed Not Available Not Available Not Available lisinopril 10 mg tablet 02/14 completed Not Available Not Available Not Available lisinopril 30 mg tablet 30 MG ORALLY DAILY FOR 30 DAYS active Not Available Not Available No t Available acyclovir 200 mg capsule as needed active Not Available Not Available No t Available fluticasone propionate 50 mcg/actuati on nasal spray,suspe nsion SPRAY 1 SPRAY INTO EACH NOSTRIL EVERY DAY active Not Available Not Available No t Available buspirone 15 mg tablet TAKE 1 TABLET (15 MG) BY ORAL ROUTE active Not Available Not Available No t Available venlafaxine ER 225 mg tablet,exte nded release 24 hr Take 1 tablet every day by oral route. active Not Available Not Available No t Available Vitals Date Recorded Body height Heart rate Oxygen saturation Oxygen saturation in Arterial blood by Pulse oximetry Systolic blood pressure Diastolic blood pressure Provider Name and Address Organization Details Last Updated DateTime 4 162.56 cm 89 /min 99 % 99 % 140 mm[Hg] 82 mm[Hg] Juanita Grimaldo [facility] 4 11:51:23 Date Recorded Body height Body weight Heart rate Oxygen saturation Oxygen saturation in Arterial blood by Pulse oximetry Systolic blood pressure Diastolic blood pressure Provider Name and Address Organization Details Last Updated DateTime 5 162.56 cm 524506. 02 g 96 /min 99 % 99 % 188 mm[Hg] 118 mm[Hg] Bairon Garcia [facility] 5 10:42:38 Social History None recorded. Functional Status None recorded. Mental Status None recorded. Family History Nothing Reported. Medical History No medical history recorded. Gynecological HistoryNo gynecological history recorded. Obstetrics History GPAL:G 0 P 0 0 0 0 Past Encounters Encounter ID Performer Location Encounter Start Date Encounter Closed Date Diagnosis/Indication Diagnosis SNOMED-CT Code Diagnosis ICD10 Code Diagnosis Note [id number] Fanny Saenz MD [address] [facility] ([place]) [address] [place] [address] 02/15/2024 11:40:33 02/15/2024 12:16:48 Cervical radiculopathy 75730084 M54.12 [id number] Fanny Saenz MD [facility] ([place]) [address] [place] [address], [address] [place] [address] 02/26/2024 15:33:39 02/28/2024 09:46:56 [id number] Fanny Saenz MD [address] [facility] ([place]) [address] [place] [address],[address] [place] [address] 08/19/2024 10:30:34 08/19/2024 10:46:11 Cervical radiculopathy 32585513 M54.12 Cervical d isc disorder 663162824 M50.90 Health Concerns Section Related Observation LastModified by Organization Detai ls LastModified Time None Recorded Concern Status LastModified by Organization Details LastModified Time None Recorded Advance Directives Directive None Recorded Payers Encounter Date Sequence Insurance Name Policy Number Policy Rubio Covered Member ID Rubio Member ID Guarantor Name 02/15/2024 1 [place] [id number] Elisabet Bruce [id number] Elisabet Bruce 02/15/2024 2 [employer] [place] [employer] (PPO) Elisabet Bruce [id number] Elisabet Amayats 02/26/2024 1 [place] [id number] Elisabet Bruce [id number] Elisabet Bruce 02/26/2024 2 [employer] [employer] ([place]) Elisabet Bruce [id number] Elisabet Bruce 08/19/2024 1 [place] [id number] Elisabet Bruce [id number] Elisabet Bruce Notes Date Note Type Note Provider Name and Address Organization Details Recorded Time 02/15/2024 text/html 44 year old lady who has had cervical pain radiating to the right upper limb secondary to degenerative disk disease at C5-6 helped by previous steroid injections, including 1 in July of this year, has come back for followup. She rates the pain as 4-5/10. She meant to call us for a cervical epidural injection repeat, but however, her grcfhv-ju-nad was sick so she delayed. She is taking gabapentin 400 mg 3 times, flexeril, and tramadol p.r.n. and she has no side effects or aberrant behavior. They do help her, making her functional. She has not had any falls. Fanny Saenz MD [address] [place] [address], [phone], [place] [facility] 02/18/2024 12:48:22 08/19/2024 text/html 44 year old lady who has had cervical pain radiating to the right upper limb secondary to degenerative disc disease at C5-6 and C6-7 having had a steroid injection on 02/26/2024 helping her significantly has come back for follow-up. She currently takes gabapentin 400 mg 3 times along with Flexeril 10 mg t.i.d. p.r.n. and tramadol p.r.n. She has no side effects or aberrant behavior. She started having symptoms coming back. She would like to consider another injection, which we will organize to be done. Fanny Saenz MD [address] [place] [address], [phone], [facility] 08/21/2024 14:00:13 OBGyn Episode No OBEpisode recorded.
[2024-09-03 13:24] LABS: Thyroid Stimulating Hormone Reflex 2.45 u/IU/mL (0.36-3.74)
== END 2024-09-03 12:13 | disposition home or self-care (01) ==
LOC: CHSLAB 12:12
PROVIDERS: PCP Nurse Practitioner Family; Visit Provider Nurse Practitioner Family
DX: Z00.00 Encounter for general adult medical examination without abnormal findings (principal)
CPT/HCPCS: 36415; 80053; 80061; 83036; 84443; 85025

== ENCOUNTER 2024-09-22 14:10 | Outpatient (CLI) | payer BC, SELFPAY ==
--- OUTSIDE RECORDS SUMMARY | 2024-09-22 15:48 | XMS_ITS | Clinical Summary ---
Author Organization [facility] Address [address] [place] [address] Care Team Providers Care Cloud Systems Administrator Name Role Phone None, Provider MD Primary [...] on file Legal Sex Female 1:11 PM EMAIL MARKETING EXECUTIVE Gender Identity Not on file Sexual Orientation Not on file Last Filed Vital Signs Vital Sign Reading Time Taken Comments Blood Pressure 127/81 06/10/2020 8:51 AM EMAIL MARKETING EXECUTIVE Pulse 80 06/10/2020 8:51 AM EMAIL MARKETING EXECUTIVE Temperature - - Respiratory Rate 16 06/10/2020 8:51 AM EMAIL MARKETING EXECUTIVE Oxygen Saturation 99% 06/10/2020 8:51 AM EMAIL MARKETING EXECUTIVE Inhaled Oxygen Concentration - - Weight 103.9 kg (229 lb) 06/10/2020 8:10 AM EMAIL MARKETING EXECUTIVE Height 162.6 cm (5' 4 ) 06/10/2020 8:10 AM EMAIL MARKETING EXECUTIVE Body Mass Index 39.31 06/10/2020 8:10 AM EMAIL MARKETING EXECUTIVE Plan of Treatment Health Maintenance Due Date Last Done Comments Cervical Cancer Screening Pap Smear (Age 30 to 64) Every 3 Years 1978 Colorectal Cancer Screening Colonoscopy (10 Years) 1978 Annual Physical 1981 Pneumococcal Vaccine: Pediatrics (0 to 5 Years) and At-Risk Patients (6 to 49 Years) (1 of 2 - PCV) 02/09/1984 Hepatitis C 02/09/1996 DTaP, Tdap and Td Vaccines (1 - Tdap) 1997 10/12/1982, 01/01/1981, 10/11/1979, Additional history exists Hepatitis B Vaccines (1 of 3 - 19+ 3-dose series) 1997 Cervical Cancer Screening Pap with HPV Testing (Age 30 to 64) Every 5 Years 02/09/2008 Cervical Cancer Screening with HPV 02/09/2008 Mammogram Screening 2018 COVID-19 Vaccine (2023- season) 2024 Meningococcal B Vaccine Aged Out No l onger eligible based on patient's age to complete this topic Meningococcal Vaccine Aged Out No belia rosalva eligible based on patient's age to complete this topic RSV Immunizations Under 20 Months Aged Out No longer eligible based on patient's age to complete this topic Insurance [facility] Care Teams Cloud Systems Administrator Relationship Specialty Start Date End Date None, Provider, PCP - General 07/30/18
== END 2024-09-22 14:11 | disposition home or self-care (01) ==
LOC: CHSIMG 14:12
PROVIDERS: PCP Family Medicine; Visit Provider Nurse Practitioner Family
DX: M25.561 Pain in right knee (principal)
CPT/HCPCS: 73562

== ENCOUNTER 2024-12-29 15:01 | Outpatient (CLI) | payer BC, SELFPAY ==
--- OUTSIDE RECORDS SUMMARY | 2024-12-29 15:04 | XMS_ITS | Clinical Summary ---
Author Organization [facility] Address [address] [place] [address] Care Team Providers Care Administrative Underwriter Name Role Phone None, Provider MD Primary [...] on file Legal Sex Female 1:11 PM RESIDENTIAL NURSE Gender Identity Not on file Sexual Orientation Not on file Last Filed Vital Signs Vital Sign Reading Time Taken Comments Blood Pressure 127/81 06/10/2020 8:51 AM RESIDENTIAL NURSE Pulse 80 06/10/2020 8:51 AM RESIDENTIAL NURSE Temperature - - Respiratory Rate 16 06/10/2020 8:51 AM RESIDENTIAL NURSE Oxygen Saturation 99% 06/10/2020 8:51 AM RESIDENTIAL NURSE Inhaled Oxygen Concentration - - Weight 103.9 kg (229 lb) 06/10/2020 8:10 AM RESIDENTIAL NURSE Height 162.6 cm (5' 4) 06/10/2020 8:10 AM RESIDENTIAL NURSE Body Mass Index 39.31 06/10/2020 8:10 AM RESIDENTIAL NURSE Plan of Treatment Health Maintenance Due Date Last Done Comments Cervical Cancer Screening Pap Smear (Age 30 to 64) Every 3 Years 1978 Colorectal Cancer Screening Colonoscopy (10 Years) 1978 Annual Physical 1981 Hepatitis C 02/09/1996 DTaP, Tdap and Td Vaccines (1 - Tdap) 1997 10/12/1982, 01/01/1981, 10/11/1979, Additional history exists Hepatitis B Vaccines (1 of 3 - 19+ 3-dose series) 1997 Pneumococcal Vaccine: Pediatrics (0 to 5 Years) and At-Risk Patients (6 to 49 Years) (1 of 2 - PCV) 1997 Cervical Cancer Screening Pap with HPV [...] patient's age to complete this topic Insurance [facility] Care Teams Administrative Underwriter Relationship Specialty Start Date End Date None, Provider, PCP - General 07/30/18
--- OUTSIDE RECORDS SUMMARY | 2024-12-29 15:04 | XMS_ITS | Data Portability ---
Author Organization [facility], [address] [place] [address] Neurology ([place]) Address [address] [place] [address] Care Team Providers Care Intelligence Officer Name Role Phone RENAY ALFARO Primary Care Provider [phone] Assessment Encounter Date Assessment Date Assessment LastModified [...] will see her back in 6 months. [email or web address] Not available 02/15/2024 20:03:43 08/19/2024 08/19/2024 IMPRESSION: [...] in spite of getting the injection. [email or web address] Not available 08/21/2024 12:42:24 Plan of Treatment Reminders Order Date Submit Date Provider Last Modified By Organization Details Last Modified Time Details Appointments [facility] Patient 15.EST 2024 11:30A M Dr. Fanny Saenz Not available Not available Not available Lab None recorded . Referral None recorded . Procedures None recorded . Surgeries None recorded . Imaging None recorded . Medication Orders gabapent in 400 mg capsule [address] [facility] [place] [address] [place], [address], 02/15/2024 12:11:07 cycloben zaprine 10 mg tablet [address] [facility] [place] [address] [place], [address], 02/15/2024 12:11:09 tramadol 50 mg tablet [address] [facility] [place] [address] [place], [address], 02/15/2024 12:15:16 Patient TargetsNo targets recorded. Patient InstructionsNo instructions recorded. Reason for Referral None Reported. Results Created Date Observation Date Name Description Value Unit Range Abnormal Flag Note LastModifiedBy Organization Detail LastModifiedTime 02/26/20 24 02/26/2024 pregn anup test, urine HCG negati ve Not Available [facility] [address] [place] [address], [phone], 02/26/2024 15:51:10 09/12/19 25 09/11/2024 pregn anup test, urine HCG negati ve Not Available [facility] ([place] [address] [place] [address], [phone], 09/11/2024 14:02:00 Result Notes None recorded. Problems Name Problem SNOMED Code Status Onset Date Resolution Date Notes Provider Name and Address Organization Details Recorded Time Cervical radiculopathy 67295865 Active 2023 Uriel echeverria [facility] 11:09:26 Problem Notes None recorded. Procedures Surgical History Date Name Laterality Status Provider Name and Address Organization Details Recorded Time ID Operative Report completed Fanny Saenz MD [address] [place] [address], [phone], [facility] 09/11/2024 14:30:46 4 [place] Operative Report completed Fanny Saenz MD [address] [place] [address], [phone], [facility] 02/26/2024 16:16:31 Imaging Results None recorded. Procedure Notes None recorded. Medical Equipment None Reported. Allergies Allergen ID Allergen Name Allergen Category Reaction Reaction Severity Criticality Documentation Date Start Date Code Code System Note Provider Name and Address Organization Details Recorded Time 372767 Substance with sulfonami de structure and antibacte rial mechanism of action (substanc e) medicatio n Not available Not available Not available 07/09/20232017 25628 8003 SNOMED Not Available [facility] 23:08:46 Medications Name Sig Start Date Stop Date Status Note LastModified by Organization Details LastModified Time cyclobenzap rine 10 mg tablet Take 1 tablet 3 times a day by oral route. 2024 active Not Available Not Available Not [...] Available Not Available tramadol 50 mg tablet Take 1 tablet every 6 hours by oral route. 2024 active Not Available Not Available Not [...] t Available Vitals Date Recorded Body height Body weight Heart rate Oxygen saturation Oxygen saturation in Arterial blood by Pulse oximetry Systolic And Diastolic Provider Name and Address Organization Details Last Updated DateTime 5 162.56 cm 242912. 02 g 96 /min 99 % 99 % 188/118 mm[Hg] Bairon Garcia [facility] 5 10:42:38 Date Recorded Body height Heart rate Oxygen saturation Oxygen saturation in Arterial blood by Pulse oximetry Systolic And Diastolic Provider Name and Address Organization Details Last Updated DateTime 4 162.56 cm 89 /min 99 % 99 % 140/82 mm[Hg] Juanita Grimaldo [facility] 4 11:51:23 Social History None recorded. Functional Status None recorded. Mental Status None recorded. Family History Nothing Reported. Medical History No medical history recorded. Gynecological HistoryNo gynecological history recorded. Obstetrics History GPAL:G 0 P 0 0 0 0 Past Encounters Encounter ID Performer Location Encounter Start Date Encounter Closed Date Diagnosis/Indication Diagnosis SNOMED-CT Code Diagnosis ICD10 Code Diagnosis Note [id number] Fanny Saenz MD [address] [facility] ([place]) [address] [place] [address],[address] [place] [address] 02/15/2024 11:40:33 02/15/2024 12:16:48 Cervical radiculopathy 44449593 M54.12 [id number] Fanny Saenz MD [facility] Neurology ([place]) [address] [place] [address], [address] [place] [address] 02/26/2024 15:33:39 02/28/2024 09:46:56 [id number] Fanny Saenz MD [address] [facility] ([place]) [address] [place] [address] 08/19/2024 10:30:34 08/19/2024 10:46:11 Cervical radiculopathy 58750330 M54.12 Cervical d isc disorder 574753300 M50.90 [id number] Fanny Saenz MD [facility] Neurology ([place]) [address] [place] [address], [address] [place] [address] 09/11/2024 13:27:37 09/12/2024 15:25:16 Health Concerns Section Related Observation LastModified by Organization Detai ls LastModified Time None Recorded Concern Status LastModified by Organization Details LastModified Time None Recorded Advance Directives Directive None Recorded Payers Insurance Date Sequence Insurance Name Policy Number Policy Rubio Covered Member ID Rubio Member ID Guarantor Name 12/09/2024 1 [place] [id number] Arsen Bruce [id number] Elisabet Bruce 09/12/2024 2 [place] [employer] [place] Elisabet Bruce [id number] Elisabet Bruce 09/12/2024 2 [employer] Elisabet Bruce [id number] Elisabet Bruce 09/12/2024 2 HAP PREF[employer]ED OF [facility] (PPO) Elisabet Bruce [id number] Elisabet Bruce 10/04/2024 2 [facility] [employer] (PPO) [id number] Elisabet Bruce [id number] Elisabet Bruce Notes Date Note Type Note [...] cervical epidural injection repeat, but however, her nwwenc-tl-nmt was sick so she delayed. She is taking gabapentin 400 mg 3 times, flexeril, and tramadol p.r.n. and she has no side effects or aberrant behavior. They do help her, making her functional. She has not had any falls. Fanny Saenz MD [address] [place] [address], [phone], [facility] 02/18/2024 12:48:22 08/19/2024 text/html 44 year old [...] be done. Fanny Saenz MD [address] [place] [address], [phone], [facility] 08/21/2024 14:00:13 OBGyn Episode No OBEpisode recorded.
--- OUTSIDE RECORDS SUMMARY | 2024-12-29 15:04 | XMS_ITS | Patient Health Record ---
Author Organization [facility] Address [address] [place], [place] [address] Care Team Providers Care Account Auditor Name Role Phone ANDREW Arroyo Unavailable [phone] Carmen Qiu Unavailable Unavailable Reason For Referral No Information Medications Medication SIG (Take, Route, Frequency, Duration) Notes Start Date End Date Status tramadol hydrochloride 50 MG Oral Tablet ORAL tramadol hydrochloride 50 MG Oral TabletOriginal Medicationtramadol hydrochloride 50 MG Oral Tablet *Reorder from [employer] for eRx and Interaction Alerts* 03/15/2020 Active gabapentin 50 MG/ML Oral Solution ORAL gabapentin 50 MG/ML Oral SolutionOriginal Medicationgabapentin 50 MG/ML Oral Solution *Reorder from [employer] for eRx and Interaction Alerts* 03/15/2020 Active Plan Of Treatment No Information Insurance Providers Payer Name Payer Address Payer Phone Subscriber Number Group Number Insured Name Patient Relationship to Insured Coverage Start Date Coverage End Date [facility] ([facility]) ATTN CLAIMS [address] [place] [address] [id number] NAHUN TEAGUE Spouse - patient is the spouse of the insured
[2024-12-29 15:16] LABS: Hematocrit 40.7 % (35.0-49.0); Hemoglobin 13.2 g/dL (12.0-15.0); Immature Granulocyte Percent A 0.3 % (0.0-0.0); Lymphocytes Absolute Auto 2.34 K/mm3 (1.10-4.50); Mean Corpuscular HGB Conc 32.4 g/dL (32-36); Mean Corpuscular Hemoglobin 30.9 pg (27.0-31.0); Mean Corpuscular Volume 95.3 fL (78.0-102.0); Nucleated Red Blood Cells Absolute Auto 0.00 K/mm3 (0.00-0.00); Nucleated Red Blood Cells Perc 0.0 % (0-0.0); Platelet Count Result 367 K/mm3 (150-420); Red Blood Count 4.27 M/mm3 (4.20-5.40); White Blood Count 7.7 K/mm3 (4.8-10.8)
[2024-12-29 15:26] LABS: Hemoglobin A1C 5.6 % (<5.7)
[2024-12-29 16:04] LABS: Alanine Aminotransferase 30 U/L (6-35); Albumin Level 4.1 g/dL (3.5-5.1); Alkaline Phosphatase 118 U/L (38-126); Anion Gap 2 mmol/L (4-12); Aspartate Amino Transferase 29 U/L (14-36); Bilirubin,Total 0.6 mg/dL (0.2-1.3); Blood Urea Nitrogen 9 mg/dL (7-17); Calcium 8.8 mg/dL (8.4-10.2); Carbon Dioxide 28 mmol/L (22-30); Chloride 105 mmol/L (98-107); Cholesterol 272 mg/dL (0-200); Estimated Glomerular Filt Rate > 60; Glucose 74 mg/dL (65-110); HDL Direct 35 mg/dL; Iron 93 ug/dL (37-170); Osmolality Calculated 277 mOsm/kg (285-295); Potassium 4.6 mmol/L (3.4-5.0); Sodium 135 mmol/L (137-145); Total Protein 7.3 g/dL (6.3-8.2); Triglycerides 355 mg/dL (<150)
[2024-12-29 16:13] LABS: Percent Iron Saturation 30 % (20-50)
[2024-12-29 16:39] LABS: Ferritin 22.90 ng/mL (6.24-137)
== END 2024-12-29 15:02 | disposition home or self-care (01) ==
LOC: CHSLAB 15:02
PROVIDERS: PCP Nurse Practitioner Family; Visit Provider Nurse Practitioner Family
DX: Z00.00 Encounter for general adult medical examination without abnormal findings (principal); R53.83 Other fatigue; E78.5 Hyperlipidemia, unspecified; R73.03 Prediabetes
CPT/HCPCS: 36415; 80053; 80061; 82306; 82728; 83036; 83540; 83550; 85025

== ENCOUNTER 2025-01-06 15:24 | Outpatient (CLI) | payer BC, SELFPAY ==
--- OUTSIDE RECORDS SUMMARY | 2025-01-06 15:29 | XMS_ITS | Clinical Summary ---
Author Organization [facility] Address [address] [place] [address] Care Team Providers Care Air And Missile Defense Crewmember Name Role Phone None, Provider MD Primary [...] on file Legal Sex Female 1:11 PM TELEPHONE DIRECTORY DELIVERER Gender Identity Not on file Sexual Orientation Not on file Last Filed Vital Signs Vital Sign Reading Time Taken Comments Blood Pressure 127/81 06/10/2020 8:51 AM TELEPHONE DIRECTORY DELIVERER Pulse 80 06/10/2020 8:51 AM TELEPHONE DIRECTORY DELIVERER Temperature - - Respiratory Rate 16 06/10/2020 8:51 AM TELEPHONE DIRECTORY DELIVERER Oxygen Saturation 99% 06/10/2020 8:51 AM TELEPHONE DIRECTORY DELIVERER Inhaled Oxygen Concentration - - Weight 103.9 kg (229 lb) 06/10/2020 8:10 AM TELEPHONE DIRECTORY DELIVERER Height 162.6 cm (5' 4) 06/10/2020 8:10 AM TELEPHONE DIRECTORY DELIVERER Body Mass Index 39.31 06/10/2020 8:10 AM TELEPHONE DIRECTORY DELIVERER Plan of Treatment Health Maintenance Due Date [...] patient's age to complete this topic Insurance [facility] Care Teams Air And Missile Defense Crewmember Relationship Specialty Start Date End Date None, Provider, PCP - General 07/30/18
--- OUTSIDE RECORDS SUMMARY | 2025-01-06 15:29 | XMS_ITS | Data Portability ---
Author Organization [facility], [address] [place] [address] Neurology ([place]) Address [address] [place] [address] Care Team Providers Care Bag Mender Name Role Phone RENAY ALFARO Primary Care Provider Assessment Encounter Date Assessment Date Assessment LastModified [...] see her back in 6 months. daisha [email or web address] Not available 02/15/2024 20:03:43 08/19/2024 08/19/2024 IMPRESSION: [...] in spite of getting the injection. [email or web address] Not available 08/21/2024 12:42:24 Plan of Treatment Reminders Order Date Submit Date Provider Last Modified By Organization Details Last Modified Time Details Appointments Isabella [facility] Patient 15.EST 2024 11:30A M Dr. Fanny Saenz Not available Not available Not available Lab None recorded . Referral None recorded . Procedures None recorded . Surgeries None recorded . Imaging None recorded . Medication Orders gabapent in 400 mg capsule 2023 024 [facility] [place] [address] [place], [address], 02/15/2024 12:11:07 cycloben zaprine 10 mg tablet 2023 024 [facility] [place] [address] [place], [address], 02/15/2024 12:11:09 tramadol 50 mg tablet 2023 024 [facility] [place] [address] [place], [address], 02/15/2024 12:15:16 Patient TargetsNo targets recorded. Patient InstructionsNo instructions recorded. Reason for Referral None Reported. Results Created Date Observation Date Name Description Value Unit Range Abnormal Flag Note LastModifiedBy Organization Detail LastModifiedTime 02/26/20 24 02/26/2024 pregn anup test, urine HCG negati ve Not Available [facility] [place] [address] [place] [address], [phone], 02/26/2024 15:51:10 09/12/19 25 09/11/2024 pregn anup test, urine HCG negati ve Not Available [facility] [place] [address] [place] [address], [phone], 09/11/2024 14:02:00 Result Notes None recorded. Problems Name Problem SNOMED Code Status Onset Date Resolution Date Notes Provider Name and Address Organization Details Recorded Time Cervical radiculopathy 99209254 Active [address] [facility] 5 11:09:26 Neck pain 17697108 Active [address] [facility] 5 15:27:18 Problem Notes None recorded. Procedures Surgical History Date Name Laterality Status Provider Name and Address Organization Details Recorded Time 04/03/202 5 [place] Operative Report completed Fanny Saenz MD [address] [place] [address], [phone], [facility] 09/11/2024 14:30:46 4 [place] Operative Report completed Fanny Saenz MD [address] [place], [address], [facility] 02/26/2024 16:16:31 Imaging Results None recorded. Procedure Notes None recorded. Medical Equipment None Reported. Allergies Allergen ID Allergen Name Allergen Category Reaction Reaction Severity Criticality Documentation Date Start Date Code Code System Note Provider Name and Address Organization Details Recorded Time 677911 Substance with sulfonami de structure and antibacte rial mechanism of action (substanc e) medicatio n Not available Not available Not available 07/09/20232017 95850 8003 SNOMED Not Available [facility] 4 23:08:46 Medications Name Sig Start Date Stop [...] 150 mg capsule,ext ended release 24 hr 03/11 /2025 completed Not Available Not Available Not Available omeprazole 40 mg capsule,del ayed release active Not Available Not Available Not Available tramadol 50 mg tablet 2024 active Not Available Not Available Not Avjohnson lable trazodone 100 mg tablet 02/14 completed [...] Details Last Updated DateTime 5 162.56 cm 215348. 02 g 96 /min 99 % 99 % 188/118 mm[Hg] Bairon Garcia [facility] 5 10:42:38 Date Recorded Body height Heart rate Oxygen saturation Oxygen saturation in Arterial blood by Pulse oximetry Systolic And Diastolic Provider Name and Address Organization Details Last Updated DateTime 4 162.56 cm 89 /min 99 % 99 % 140/82 mm[Hg] Juanita Grimaldo [facility] 4 11:51:23 Social History None recorded. Functional Status None recorded. Mental Status None recorded. Family History Nothing Reported. Medical History No medical history recorded. Gynecological HistoryNo gynecological history recorded. Obstetrics History GPAL:G 0 P 0 0 0 0 Past Encounters Encounter ID Performer Location Encounter Start Date Encounter Closed Date Diagnosis/Indication Diagnosis SNOMED-CT Code Diagnosis ICD10 Code Diagnosis Note [id number] Fanny Saenz MD [address] Neurology ([place]) [address] [place] [address] 02/15/2024 11:40:33 02/15/2024 12:16:48 Cervical radiculopathy 95264786 M54.12 [id number] Fanny Saenz MD [facility] Neurology ([place]) [address] [place] [address], [address] [place] [address] 02/26/2024 15:33:39 02/28/2024 09:46:56 [id number] Fanny Saenz MD [address] Neurology ([place]) [address] [place] [address] 08/19/2024 10:30:34 08/19/2024 10:46:11 Cervical radiculopathy 07321640 M54.12 Cervical d isc disorder 204526299 M50.90 [id number] Fanny Saenz MD [facility] Neurology ([place]) [address] [place] [address], [address] [place] [address] 09/11/2024 13:27:37 09/12/2024 15:25:16 Health Concerns Section Related Observation LastModified by Organization Detai ls LastModified Time None Recorded Concern Status LastModified by Organization Details LastModified Time None Recorded Advance Directives Directive None Recorded Payers Insurance Date Sequence Insurance Name Policy Number Policy Rubio Covered Member ID Rubio Member ID Guarantor Name 12/09/2024 1 [place] [id number] Arsen Bruce [id number] Elisabet Bruce 09/12/2024 2 [place] Elisabet Bruce [id number] Elisabet Bruce 09/12/2024 2 [employer] Elisabet Bruce [id number] Elisabet Bruce 09/12/2024 2 HAP PREFERRED OF [facility] [employer] (PPO) Elisabet Bruce [id number] Elisabet Bruce 10/04/2024 2 [facility] [employer] (PPO) [id number] Elisabet Bruce [id number] Elisabet Bruce OBGyn Episode No OBEpisode recorded.
--- OUTSIDE RECORDS SUMMARY | 2025-01-06 15:29 | XMS_ITS | Patient Health Record ---
Author Organization [facility] Address [address] [place], [place] [id number] Care Team Providers Care Patient Service Coordinator Name Role Phone ANDREW Arroyo Unavailable [phone] Carmen Qiu Unavailable Unavailable Reason For Referral No Information Medications Medication SIG (Take, Route, Frequency, Duration) Notes Start Date End Date Status tramadol hydrochloride 50 MG Oral Tablet ORAL tramadol hydrochloride 50 MG Oral TabletOriginal Medicationtramadol hydrochloride 50 MG Oral Tablet *Reorder from Couple for eRx and Interaction Alerts* 03/15/2020 Active gabapentin 50 MG/ML Oral Solution ORAL gabapentin 50 MG/ML Oral SolutionOriginal Medicationgabapentin 50 MG/ML Oral Solution *Reorder from Couple for eRx and Interaction Alerts* 03/15/2020 Active Plan Of Treatment No Information Insurance Providers Payer Name Payer Address Payer Phone Subscriber Number Group Number Insured Name Patient Relationship to Insured Coverage Start Date Coverage End Date [facility] ([facility]) ATTN CLAIMS [address] [place] [address] [id number] NAHUN TEAGUE Spouse - patient is the spouse of the insured
[2025-01-06 16:40] LABS: Alanine Aminotransferase 33 U/L (6-35); Albumin Level 4.0 g/dL (3.5-5.1); Alkaline Phosphatase 115 U/L (38-126); Anion Gap 6 mmol/L (4-12); Aspartate Amino Transferase 37 U/L (14-36); Bilirubin,Total 0.6 mg/dL (0.2-1.3); Blood Urea Nitrogen 10 mg/dL (7-17); Calcium 8.7 mg/dL (8.4-10.2); Carbon Dioxide 25 mmol/L (22-30); Chloride 106 mmol/L (98-107); Cholesterol 210 mg/dL (0-200); Estimated Glomerular Filt Rate > 60; Glucose 92 mg/dL (65-110); HDL Direct 35 mg/dL; Osmolality Calculated 283 mOsm/kg (285-295); Potassium 4.0 mmol/L (3.4-5.0); Sodium 137 mmol/L (137-145); Total Protein 7.0 g/dL (6.3-8.2); Triglycerides 331 mg/dL (<150)
[2025-01-08 07:09] LABS: FSH 26.9 mIU/mL (.); LH 20.7 mIU/mL (.)
[2025-01-13 07:09] LABS: Estradiol, Sensitive 24.1 pg/mL (.)
== END 2025-01-06 15:25 | disposition home or self-care (01) ==
LOC: CHSLAB 15:27
PROVIDERS: PCP Nurse Practitioner Family; Visit Provider Nurse Practitioner Family
DX: R23.2 Flushing (principal); E78.5 Hyperlipidemia, unspecified; E55.9 Vitamin D deficiency, unspecified
CPT/HCPCS: 36415; 80053; 80061; 82166; 82306; 82670; 83001; 83002

== ENCOUNTER 2025-05-22 14:37 | Outpatient (CLI) | payer BC, SELFPAY ==
--- OUTSIDE RECORDS SUMMARY | 2025-01-15 08:00 | XMS_ITS ---
Author Organization [facility] Address [address] [place], [place] [address] Care Team Providers Care Director Of Community Education Name Role Phone PAT ANTONIO Unavailable [phone] Carmen Qiu Unavailable Unavailable Allergies Allergen (clinical drug ingredient) Drug/Non Drug Allergy documented on EMR Reaction Allergy Type Onset Date Status Substance with sulfonamide structure and antibacterial mechanism of action (substance) Product containing sulfonamide (product) (uncoded) Unknown Allergy 03/15/2020 active REASON FOR VISIT foot pain Medications Medication SIG (Take, Route, Frequency, Duration) Notes Start Date End Date Status tramadol hydrochloride 50 MG Oral Tablet ORAL tramadol hydrochloride 50 MG Oral TabletOriginal Medicationtramadol hydrochloride 50 MG Oral Tablet *Reorder from [employer] for eRx and Interaction Alerts* 0 Active methylPREDNISolone 4 MG Tablet Therapy Pack as directed Orally 5 Active Vitamin D Active busPIRone HCl Active Wegovy Active Atorvastatin Calcium Active gabapentin 50 MG/ML Oral Solution ORAL gabapentin 50 MG/ML Oral SolutionOriginal Medicationgabapentin 50 MG/ML Oral Solution *Reorder from [employer] for eRx and Interaction Alerts* 0 Active Clotrimazole 1 % Cream 1 application Externally Twice a day; Duration: 30 days 5 02/07/20 26 Active Social History Social History Additional Details Category Social Info Options Details Migrated Social History Migrated Social History Smoking Status : Current everyday tobacco user , History of tobacco use : Current everyday tobacco user Vital Signs Height 64.00 in 01/15/2025 Weight 245 lbs 01/15/2025 BMI 42.05 kg/m2 01/15/2025 Height-cm 162.56 cm 01/15/2025 Weight-kg 111.13 kg 01/15/2025 Encounters Encounter Location Date Provider Diagnosis [address] [id number] 01/15/2025 PAT ANTONIO Posterior tibial tendinitis, right leg M76.821 ; Posterior tibial tendinitis of left lower extremity M76.822 ; Achilles tendinitis, right leg M76.61 ; Achilles tendinitis of left lower extremity M76.62 ; Tinea unguium B35.1 ; Pain in right foot M79.671 ; Left foot pain M79.672 ; Plantar fascial fibromatosis M72.2 and Ingrowing nail L60.0 Assessments Encounter Date Diagnosis (ICD Code) Assessment Notes Treatment Notes Treatment Clinical Notes Section Notes 01/15/2025 Posterior tibial tendinitis, right leg (ICD-10 - M76.821) Posterior Tibialis Tendon Dysfunction: I discussed anti-inflammatory treatment options and various means of immobilization with the patient. I educated the patient on icing and stretching, supportive shoegear, and the use of orthotic devices and bracing. 01/15/2025 Posterior tibial tendinitis of left lower extremity (ICD-10 - M76.822) The patient was scanned for custom orthotics while held in subtalar joint neutral position. 01/15/2025 Achilles tendinitis, right leg (ICD-10 - M76.61) improving with stretches and trilock brace 01/15/2025 Achilles tendinitis of left lower extremity (ICD-10 - M76.62) 01/15/2025 Tinea unguium (ICD-10 - B35.1) 01/15/2025 Pain in right foot (ICD-10 - M79.671) TriLock Ankle Brace: A Trilok ankle brace was fitted and dispensed. The patient was instructed in its use. 01/15/2025 Left foot pain (ICD-10 - M79.672) Kenalog Injection: Following skin prep, a total of 3 ccs of a 1-1-1 mix of 0.5% marcaine plain, 1% lidocaine plain, and Kenalog was injected left plantar fascial origin 01/15/2025 Plantar fascial fibromatosis (ICD-10 - M72.2) Heel Pain: I discussed anti-inflammatory treatment options and various means of pronation control with the patient. I educated the patient on icing and stretching, supportive shoegear, and the use of orthotic devices. 01/15/2025 Ingrowing nail (ICD-10 - L60.0) plan for partial matrixectomy right 1st digit nail Plan Of Treatment Medication Medication Name Sig Start Date Stop Date Notes methylPREDNISolone 4 MG Tabl et Therapy Pack as directed Orally 01/15/2025 Clotrimazole 1 % Cream 1 application Ext ernally Twice a day; Duration: 30 days 02/11/2025 02/06/2026 Treatment Notes Assessment Notes Posterior tibial tendinitis, right leg Posterior Tibialis Tendon Dysfunction: I discussed anti-inflammatory treatment options and various means of immobilization with the patient. I educated the patient on icing and stretching, supportive shoegear, and the use of orthotic devices and bracing. Posterior tibial tendinitis of left lower extremity The patient was scanned for custom orthotics while held in subtalar joint neutral position. Achilles tendinitis, right leg improving with stretches and trilock brace Pain in right foot TriLock Ankle Brace: A Trilok ankle brace was fitted and dispensed. The patient was instructed in its use. Left foot pain Kenalog Injection: Following skin prep, a total of 3 ccs of a 1-1-1 mix of 0.5% marcaine plain, 1% lidocaine plain, and Kenalog was injected left plantar fascial origin Plantar fascial fibromatosis Heel Pain: I discussed anti-inflammatory treatment options and various means of pronation control with the patient. I educated the patient on icing and stretching, supportive shoegear, and the use of orthotic devices. Ingrowing nail plan for partial mat rixectomy right 1st digit nail Next Appt Details Follow Up: 1 Week,nail proce dure right 1st medial and lateral nail edges, Reason: Provider Name:PAT MAHER, 05/27/2025 03:30:00 PM, [address] [facility], [place], [place], [phone], History and Physical Notes * HPI (History of Present Illness) Category Sub-Category Detail Notes Category Not es HPI New Complaint Patient presents for a new patient consultation., Patient complains of an issue to bilateral foot pain. Patient states her right foot hurts worse, Duration of problem is 3 months., Patient denies any injury., MA: nd Examination Category Sub-Category Detail Notes Category Not es Constitutional Constitutional The patient is a wake, alert, well developed, well groomed and well nourished. Dermatologic Skin findings: bilateral skin i s warm, dry, supple with no breaks in the skin. Ingrown Nail Nail is incurvated o n the, bilateral border of the right great toenail, There is pain on palpation., There is no drainage or erythema Musculoskeletal Muscle Strength Muscle strength is 5/5 in regards to dorsiflexion, plantarflexion, inversion, and eversion in bilateral lower extremities. Pain on palpation There is pain on pal pation of medial band of the right posterior tibial tendon Plantar Fascia There is new pain on palpation to the medial band of the bilateral plantar fascia, near its attachment to the calcaneus left now worse than right for a few days Neurologic Mulders sign: bilateral, negative Gross sensation Gross sensation is i ntact to light touch. X-Ray Right Foot 3 views (AP, med ial oblique and lateral view) weight bearing right foot, Normal: No evidence of fracture, dislocation, or other osseous lesions Vascular Dorsalis pedis pulse: bilateral, 2/4 Posterior tibial pulse: bilaterally, 2/4 Progress Notes * DINO TEAGUEJAREDDOB: [birth year] (45 yo F)Acc No.[id number]:01/15/2025 Progress Notes Patient: FRANK CORONEL Provider: Hima ANTONIO :1980 A ge:44 Y S ex:Female Date:01/15/2025 Address:[address] [place], [place] [id number] Subjective: * Chief Complaints: * F oot pain * HPI: H PI: New Complaint P atient presents for a new patient consultation., Patient complains of an issue to bilateral foot pain. Patient states her right foot hurts worse, Duration of problem is 3 months., Patient denies any injury., MA: nd. * ROS: G eneral / Constitutional: Patient denies f atigue, chills, headache, fever. P atient complains of p ain. M usculoskeletal: Patient denies b roken ankle. P atient complains of?muscle stiffness. P eripheral Vascular: Patient denies u lceration of feet, cold extremities. ? S kin: Patient denies u lcerations, rash. N eurologic: Patient denies N umbness. * Medical History: Acid reflux Asthma - mild intermittent Leg/Feet cramps Back Trouble Varicose veins High blood pressure Medical History Verified * Surgical History: Denies Past Surgical History. Surgical History verified. * Hospitalization/Major Diagno stic Procedure: Denies Past Hospitalization. Hospitalization Verified. * Family History: M other: alive. F amily History Verified.. * Social History: M igrated Social History: M igrated Social History: Smoking Status : Current everyday tobacco user , History of tobacco use : Current everyday tobacco user. * Medications: T akingWegovy Vitamin D busPIRone HCl Atorvastatin Calcium gabapentin 50 MG/ML Oral Solution ORAL , Notes to Pharmacist: gabapentin 50 MG/ML Oral SolutionOriginal Medicationgabapentin 50 MG/ML Oral Solution *Reorder from [employer] for eRx and Interaction Alerts*tramadol hydrochloride 50 MG Oral Tablet ORAL , Notes to Pharmacist: tramadol hydrochloride 50 MG Oral TabletOriginal Medicationtramadol hydrochloride 50 MG Oral Tablet *Reorder from [employer] supply [employer] for eRx and Interaction Alerts*Medication List reviewed and reconciled with the patientTaking Wegovy Taking Vitamin D Taking busPIRone HCl Taking Atorvastatin Calcium Taking gabapentin 50 MG/ML Oral Solution ORAL , Notes to Pharmacist: gabapentin 50 MG/ML Oral SolutionOriginal Medicationgabapentin 50 MG/ML Oral Solution *Reorder from [employer] for eRx and Interaction Alerts*Taking tramadol hydrochloride 50 MG Oral Tablet ORAL , Notes to Pharmacist: tramadol hydrochloride 50 MG Oral TabletOriginal Medicationtramadol hydrochloride 50 MG Oral Tablet *Reorder from [employer] supply chainspan for eRx and Interaction Alerts*Medication List reviewed and reconciled with the patient * Allergies: P roduct containing sulfonamide (product): Allergy - Onset Date 03/15/2020yesAllergies Verified. Objective: * Vitals: S hoe Size: 9, Wt:245lbs, Wt-k.13 kg, Ht: 64.00 in, Ht-cm: 162.56 cm, BMI:42.05Index, Body Surface Area: 2.24. * Examination: C onstitutional: Constitutional T he patient is awake, alert, well developed, well groomed and well nourished.. D ermatologic: Skin findings: b ilateral s kin is warm, dry, supple with no breaks in the skin.. Ingrown Nail N ail is incurvated on the, bilateral border of the right great toenail, There is pain on palpation., There is no drainage or erythema. M usculoskeletal: Muscle Strength M uscle strength is 5/5 in regards to dorsiflexion, plantarflexion, inversion, and eversion in bilateral lower extremities.. Pain on palpation T here is pain on palpation of m edial band of the right posterior tibial tendon. Plantar Fascia T here is new pain on palpation to the medial band of the bilateral plantar fascia, near its attachment to the calcaneus left now worse than right for a few days. N eurologic: Mulders sign: b ilateral, negative. Gross sensation G ross sensation is intact to light touch..? V ascular: Dorsalis pedis pulse: b ilateral, 2/4. Posterior tibial pulse: b ilaterally, 2/4. X -Ray: Right Foot 3 views (AP, medial oblique and lateral view) weight bearing right foot, Normal: No evidence of fracture, dislocation, or other osseous lesions.? Assessment: * Assessment: 1. P osterior tibial tendinitis, right leg - M76.821 (Primary) 2 . P osterior tibial tendinitis of left lower extremity - M76.822 3 . A chilles tendinitis, right leg - M76.61 4 . A chilles tendinitis of left lower extremity - M76.62 5. T inea unguium - B35.1 6 . P ain in right foot - M79.671? 7. L eft foot pain - M79.672 8 . P lantar fascial fibromatosis - M72.2 9 . I ngrowing nail - L60.0 Plan: * Treatment: 2. P osterior tibial tendinitis of left lower extremity Notes: The patient was scanned for custom orthotics while held in subtalar joint neutral position.? 3. A chilles tendinitis, right leg Notes: improving with stretches and trilock brace 4. T inea unguium Start Clotrimazole Cream, 1 %, 1 application, Externally, Twice a day, 30 days, 1 Unspecified, Refills 11. 5. P ain in right foot Notes: TriLock Ankle Brace: A Trilok ankle brace was fitted and dispensed. The patient was instructed in its use. 6. L eft foot pain Notes: Kenalog Injection: Following skin prep, a total of 3 ccs of a 1-1-1 mix of 0.5% marcaine plain, 1% lidocaine plain, and Kenalog was injected left plantar fascial origin 7. P lantar fascial fibromatosis Notes: Heel Pain: I discussed anti-inflammatory treatment options and various means of pronation control with the patient. I educated the patient on icing and stretching, supportive shoegear, and the use of orthotic devices. 8. I ngrowing nail Notes: plan for partial matrixectomy right 1st digit nail * Procedure Codes: L 1902 AFO ANK GAUNTLT PREFAB W/FIT&ADJ, Modifiers: LT , GA * Follow Up: 1 Week,nail procedure right 1st medial and lateral nail edges Billing Information: * Visit Code: 98024 Office Visit, New Pt., Level 3. * Procedure Codes: L1902 AFO ANK GAUNTLT PREFAB W/FIT&ADJ. 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
--- OUTSIDE RECORDS SUMMARY | 2025-02-11 08:50 | XMS_ITS ---
Author Organization [facility] Address [address] [place], [place] [id number] Care Team Providers Care Dermatology Specialist Name Role Phone PAT ANTONIO Unavailable [phone] Carmen Qiu Unavailable Unavailable Allergies Allergen (clinical drug ingredient) Drug/Non Drug Allergy documented on EMR Reaction Allergy Type Onset Date Status Substance with sulfonamide structure and antibacterial mechanism of action (substance) Product containing sulfonamide (product) (uncoded) Unknown Allergy 03/15/2020 active REASON FOR VISIT orthotic scan Medications Medication SIG (Take, Route, Frequency, Duration) Notes Start Date End Date Status busPIRone HCl Active Atorvastatin Calcium Active gabapentin 50 MG/ML Oral Solution ORAL gabapentin 50 MG/ML Oral SolutionOriginal Medicationgabapentin 50 MG/ML Oral Solution *Reorder from [employer] for eRx and Interaction Alerts* 0 Active Wegovy Active Vitamin D Active methylPREDNISolone 4 MG Tablet Therapy Pack as directed Orally Active tramadol hydrochloride 50 MG Oral Tablet ORAL tramadol hydrochloride 50 MG Oral TabletOriginal Medicationtramadol hydrochloride 50 MG Oral Tablet *Reorder from [employer] for eRx and Interaction Alerts* 0 Active Social History Social History Additional Details Category Social Info Options Details Migrated Social History Migrated Social History Smoking Status : Current everyday tobacco user , History of tobacco use : Current everyday tobacco user Vital Signs Height 64.00 in 02/11/2025 Weight 245 lbs 02/11/2025 BMI 42.05 kg/m2 02/11/2025 Height-cm 162.56 cm 02/11/2025 Weight-kg 111.13 kg 02/11/2025 9 Encounters Encounter Location Date Provider Diagnosis [facility] [address] [place], [place] [id number] 02/11/2025 PAT MARISELA Posterior tibial tendinitis, right leg M76.821 ; Posterior tibial tendinitis, left leg M76.822 ; Pain in right foot M79.671 and Achilles tendinitis, right leg M76.61 Assessments Encounter Date Diagnosis (ICD Code) Assessment Notes Treatment Notes Treatment Clinical Notes Section Notes 02/11/2025 Posterior tibial tendinitis, right leg (ICD-10 - M76.821) Posterior Tibialis Tendon Dysfunction: I discussed anti-inflammatory treatment options and various means of immobilization with the patient. I educated the patient on icing and stretching, supportive shoegear, and the use of orthotic devices and bracing. 02/11/2025 Posterior tibial tendinitis, left leg (ICD-10 - M76.822) Following skin prep, a total of 1.5 ccs of a 1-1-1 mix of 0.5% marcaine plain, dexamethasone sodium phosphate, and Kenalog was injected left posterior tibial tendon medial foot 02/11/2025 Pain in right foot (ICD-10 - M79.671) TriLock Ankle Brace: A Trilok ankle brace was fitted and dispensed. The patient was instructed in its use. 02/11/2025 Achilles tendinitis, right leg (ICD-10 - M76.61) Plan Of Treatment Medication Medication Name Sig Start Date Stop Date Notes methylPREDNISolone 4 MG Tabl et Therapy Pack as directed Orally Treatment Notes Assessment Notes Posterior tibial tendinitis, right leg Posterior Tibialis Tendon Dysfunction: I discussed anti-inflammatory treatment options and various means of immobilization with the patient. I educated the patient on icing and stretching, supportive shoegear, and the use of orthotic devices and bracing. Posterior tibial tendinitis, left leg Fo llowing skin prep, a total of 1.5 ccs of a 1-1-1 mix of 0.5% marcaine plain, dexamethasone sodium phosphate, and Kenalog was injected left posterior tibial tendon medial foot Pain in right foot TriLock Ankle Brace: A Trilok ankle brace was fitted and dispensed. The patient was instructed in its use. Next Appt Details Follow Up: 2 Weeks,ox scan, Reason: Provider Name:PAT MAHER, 05/27/2025 03:30:00 PM, [address] [facility], [facility] [address], [place], [place], [id number], History and Physical Notes * HPI (History of Present Illness) Category Sub-Category Detail Notes Category Not es HPI Follow Up Visit Patient presents for follow up visit for bilateral foot pain, Patient states their problem is improving, MA: nd She is going to wait to order orthotics until she has the money for them. Currently she is using otc orthotics and supportive shoes. She requests a shot left foot. She has worsening right achilles tendon pain Examination Category Sub-Category Detail Notes Category Not es Constitutional Constitutional The patient is a wake, alert, well developed, well groomed and well nourished. Dermatologic Skin findings: bilateral skin i s warm, dry, supple with no breaks in the skin. Musculoskeletal Muscle Strength Muscle strength is 5/5 in regards to dorsiflexion, plantarflexion, inversion, and eversion in bilateral lower extremities. Pain on palpation There is pain on pal pation of medial band of the right and left posterior tibial tendon and insertion of Achilles tendon right. , There is pain with range of motion Neurologic Mulders sign: bilateral, negative Gross sensation Gross sensation is i ntact to light touch. X-Ray Right Foot reviewed 3 views (AP, medial oblique and lateral view) weight bearing right foot, Normal: No evidence of fracture, dislocation, or other osseous lesions Vascular Dorsalis pedis pulse: bilateral, 2/4 Posterior tibial pulse: bilaterally, 2/4 Progress Notes * FRANK TEAGUEDOB: [birth year] (45 yo F)Acc No.[id number]:02/11/2025 Patient: RADHA CORONELFER Provider: Hima ANTONIO :1980 A ge:45 Y S ex:Female Date:02/11/2025 Address:[address] [place], [place] [id number] Subjective: * Chief Complaints: * O rthotic scan * HPI: H PI: Follow Up Visit P atient presents for follow up visit for bilateral foot pain, Patient states their problem is improving, MA: nd S he is going to wait to order orthotics until she has the money for them. C urrently she is using otc orthotics and supportive shoes. She requests a shot left foot. S he has worsening right achilles tendon pain.? * ROS: G eneral / Constitutional: Patient [...] tobacco use : Current everyday tobacco user. Social History Verified. * Medications: T akingWegovnuris Vitamin D busPIRone HCl Atorvastatin Calcium gabapentin 50 MG/ML Oral Solution ORAL , Notes to Pharmacist: gabapentin 50 MG/ML Oral SolutionOriginal Medicationgabapentin 50 MG/ML Oral Solution *Reorder from [employer] for eRx and Interaction Alerts*tramadol hydrochloride 50 MG Oral Tablet ORAL , Notes to Pharmacist: tramadol hydrochloride 50 MG Oral TabletOriginal Medicationtramadol hydrochloride 50 MG Oral Tablet *Reorder from [employer] for eRx and Interaction Alerts*methylPREDNISolone 4 MG Tablet Therapy Pack as directed Orally Medication List reviewed and reconciled with the patientTaking Wegovy Taking Vitamin D Taking busPIRone HCl Taking Atorvastatin Calcium Taking gabapentin 50 MG/ML Oral Solution ORAL , Notes to Pharmacist: gabapentin 50 MG/ML Oral SolutionOriginal Medicationgabapentin 50 MG/ML Oral Solution *Reorder from [employer] for eRx and Interaction Alerts*Taking tramadol hydrochloride 50 MG Oral Tablet ORAL , Notes to Pharmacist: tramadol hydrochloride 50 MG Oral TabletOriginal Medicationtramadol hydrochloride 50 MG Oral Tablet *Reorder from [employer] for eRx and Interaction Alerts*Taking methylPREDNISolone 4 MG Tablet Therapy Pack as directed Orally Medication List reviewed and reconciled with the patient * Allergies: P roduct containing sulfonamide (product): Allergy - Onset Date 03/15/2020yesAllergies Verified. Objective: * Vitals: S hoe Size: 9, Wt:245lbs, Wt-k.13 kg, Ht: 64.00 in, Ht-cm: 162.56 cm, BMI:42.05Index, Body Surface Area: 2.24. 9. * Examination: C onstitutional: Constitutional T he patient is awake, alert, well developed, well groomed and well nourished.. D ermatologic: Skin findings: b ilateral s kin is warm, dry, supple with no breaks in the skin.. M usculoskeletal: Muscle Strength M uscle strength is 5/5 in regards to dorsiflexion, plantarflexion, inversion, and eversion in bilateral lower extremities.. Pain on palpation T here is pain on palpation of medial band of the right and left posterior tibial tendon and insertion of Achilles tendon right. , There is pain with range of motion. N eurologic: Mulders sign: b ilateral, negative. Gross sensation G ross sensation is intact to light touch..? V ascular: Dorsalis pedis pulse: b ilateral, 2/4. Posterior tibial pulse: b ilaterally, 2/4. X -Ray: Right Foot r eviewed 3 views (AP, medial oblique and lateral view) weight bearing right foot, Normal: No evidence of fracture, dislocation, or other osseous lesions. Assessment: * Assessment: 1. P osterior tibial tendinitis, left leg - M76.822 (Primary) 2 . P osterior tibial tendinitis, right leg - M76.821 3 . P ain in right foot - M79.671 ? 4 . A chilles tendinitis, right leg - M76.61 Plan: * Treatment: 2. P osterior tibial tendinitis, right leg Start methylPREDNISolone Tablet Therapy Pack, 4 MG, as directed, Orally, 1 Pack, Refills 0. ? Notes: Posterior Tibialis Tendon Dysfunction: I discussed anti-inflammatory treatment options and various means of immobilization with the patient. I educated the patient on icing and stretching, supportive shoegear, and the use of orthotic devices and bracing. 3. P ain in right foot Notes: TriLock Ankle Brace: A Trilok ankle brace was fitted and dispensed. The patient was instructed in its use. * Procedure Codes: 2 0550 INJ TENDON SHEATH/LIGAMENT, Modifiers: LT * Follow Up: 2 Weeks,ox scan Billing Information: * Visit Code: 38568 Office Visit, Est Pt., Level 3. Modifiers: 25 * Procedure Codes: 79593 INJ TENDON SHEATH/LIGAMENT. Modifiers: LT * Electronic signature of EZRA ANTONIO DPM on 05/22/2025 at 03:19 PM LICENSED INVESTMENT SALES ASSISTANT Sign off status: Pending * Provider: Hima ANTONIO Date: 0 02/11/2025 Generated for Jack burgos/Arturo/[place] on: 1 07/23/2024 03:19 PM LICENSED INVESTMENT SALES ASSISTANT
--- OUTSIDE RECORDS SUMMARY | 2025-03-04 08:50 | XMS_ITS ---
Author Organization [facility] Address [address] [place], [place] [id number] Care Team Providers Care Manufacturing Lead Name Role Phone PAT ANTONIO Unavailable [phone] Carmen Qiu Unavailable Unavailable Allergies Allergen (clinical drug ingredient) Drug/Non Drug Allergy documented on EMR Reaction Allergy Type Onset Date Status Substance with sulfonamide structure and antibacterial mechanism of action (substance) Product containing sulfonamide (product) (uncoded) Unknown Allergy 03/15/2020 active REASON FOR VISIT orthotic scan Medications Medication SIG (Take, Route, Frequency, Duration) Notes Start Date End Date Status gabapentin 50 MG/ML Oral Solution ORAL gabapentin 50 MG/ML Oral SolutionOriginal Medicationgabapentin 50 MG/ML Oral Solution *Reorder from [employer] for eRx and Interaction Alerts* 0 Active tramadol hydrochloride 50 MG Oral Tablet ORAL tramadol hydrochloride 50 MG Oral TabletOriginal Medicationtramadol hydrochloride 50 MG Oral Tablet *Reorder from [employer] for eRx and Interaction Alerts* 0 Active Atorvastatin Calcium Active methylPREDNISolone 4 MG Tablet Therapy Pack as directed Orally Active busPIRone HCl Active Wegovy Active Vitamin D Active Social History Social History Additional Details Category Social Info Options Details Migrated Social History Migrated Social History Smoking Status : Current everyday tobacco user , History of tobacco use : Current everyday tobacco user Vital Signs Height 64.00 in 03/04/2025 Weight 245 lbs 03/04/2025 BMI 42.05 kg/m2 03/04/2025 Height-cm 162.56 cm 03/04/2025 Weight-kg 111.13 kg 03/04/2025 Encounters Encounter Location Date Provider Diagnosis [facility] [address] [place], [place] [id number] 03/04/2025 PAT ANTONIO Posterior tibial tendinitis, right leg M76.821 ; Posterior tibial tendinitis, left leg M76.822 ; Pain in right foot M79.671 ; Achilles tendinitis, right leg M76.61 and Plantar fasciitis M72.2 Assessments Encounter Date Diagnosis (ICD Code) Assessment Notes Treatment Notes Treatment Clinical Notes Section Notes 03/04/2025 Posterior tibial tendinitis, right leg (ICD-10 - M76.821) Posterior Tibialis Tendon Dysfunction: I discussed anti-inflammatory treatment options and various means of immobilization with the patient. I educated the patient on icing and stretching, supportive shoegear, and the use of orthotic devices and bracing. 03/04/2025 Posterior tibial tendinitis, left leg (ICD-10 - M76.822) Following skin prep, a total of 1.5 ccs of a 1-1-1 mix of 0.5% marcaine plain, dexamethasone sodium phosphate, and Kenalog was injected left posterior tibial tendon medial foot 03/04/2025 Pain in right foot (ICD-10 - M79.671) TriLock Ankle Brace: A Trilok ankle brace was fitted and dispensed. The patient was instructed in its use. 03/04/2025 Achilles tendinitis, right leg (ICD-10 - M76.61) 03/04/2025 Plantar fasciitis (ICD-10 - M72.2) Plan Of Treatment Medication Medication Name Sig [...] instructed in its use. Next Appt Details Provider Name:PAT MAHER, 05/27/2025 03:30:00 PM, [address] [facility], [facility] [address], [place], [id number], History and Physical Notes * HPI (History of Present Illness) Category Sub-Category Detail Notes Category Not es HPI Follow Up Visit Patient presents for follow up visit for Orthotic Scan. , MA: OM Examination Category Sub-Category Detail Notes Category Not [...] * FRANK TEAGUEDOB: [birth year] (45 yo F)Acc No.[id number]:03/04/2025 Patient: FRANK CORONEL Provider: Hima ANTONIO :1980 A ge:45 Y S ex:Female Date:03/04/2025 Address:[address] [place], [place] [id number] Subjective: * Chief Complaints: * O rthotic scan * HPI: H PI: Follow Up Visit P atient presents for follow up visit for Orthotic Scan. , MA: OM. * ROS: G eneral / Constitutional: Patient [...] user. Social History Verified. * Medications: T akingWegovy Vitamin D busPIRone HCl Atorvastatin Calcium gabapentin 50 MG/ML Oral Solution ORAL , Notes to Pharmacist: gabapentin 50 MG/ML Oral SolutionOriginal Medicationgabapentin 50 MG/ML Oral Solution *Reorder from [employer] for eRx and Interaction Alerts*tramadol hydrochloride 50 MG Oral Tablet ORAL , Notes to Pharmacist: tramadol hydrochloride 50 MG Oral TabletOriginal Medicationtramadol hydrochloride 50 MG Oral Tablet *Reorder from [employer] for eRx and Interaction Alerts*methylPREDNISolone 4 MG Tablet Therapy Pack as directed Orally Medication List reviewed and reconciled with the patientTaking Wegovy Taking Vitamin D Taking busPIRone HCl Taking Atorvastatin Calcium Taking gabapentin 50 MG/ML Oral Solution ORAL , Notes to Pharmacist: gabapentin 50 MG/ML Oral SolutionOriginal Medicationgabapentin 50 MG/ML Oral Solution *Reorder from [employer] for eRx and Interaction Alerts*Taking tramadol hydrochloride 50 MG Oral Tablet ORAL , Notes to Pharmacist: tramadol hydrochloride 50 MG Oral TabletOriginal Medicationtramadol hydrochloride 50 MG Oral Tablet *Reorder from [employer] for eRx and Interaction Alerts*Taking methylPREDNISolone 4 [...] A chilles tendinitis, right leg - M76.61 5 . P lantar fasciitis - M72.2 Plan: * Treatment: 2. P osterior tibial [...] 2 0550 INJ TENDON SHEATH/LIGAMENT, Modifiers: LT L3020 FT INSRT REMV MOLD LNGTUDNL SUPP EA, Modifiers: RT , ASQ0242 FT INSRT REMV MOLD LNGTUDNL SUPP EA, Modifiers: LT , GA Billing Information: * Procedure Codes: 53940 INJ TENDON SHEATH/LIGAMENT. Modifiers: LT L3020 FT INSRT REMV MOLD LNGTUDNL SUPP EA. Modifiers: RT, GA L3020 FT INSRT REMV MOLD LNGTUDNL SUPP EA. Modifiers: LT, GA * Electronic signature of EZRA ANTONIO DPM on 05/22/2025 at 03:18 PM DATA ENTRY COORDINATOR Sign off status: Pending * Provider: Hima ANTONIO Date: 0 03/04/2025 Generated for Jack burgos/Arturo/[place] on: 1 07/23/2024 03:18 PM DATA ENTRY COORDINATOR
--- OUTSIDE RECORDS SUMMARY | 2025-03-11 08:50 | XMS_ITS ---
Author Organization [facility] Address [address] [place], [place] [id number] Care Team Providers Care Kids Activities Coach Name Role Phone PAT ANTONIO Unavailable [phone] Carmen Qiu Unavailable Unavailable Allergies Allergen (clinical drug ingredient) Drug/Non Drug Allergy documented on EMR Reaction Allergy Type Onset Date Status Substance with sulfonamide structure and antibacterial mechanism of action (substance) Product containing sulfonamide (product) (uncoded) Unknown Allergy 03/15/2020 active REASON FOR VISIT *Possible ingrown nail Medications Medication SIG (Take, Route, Frequency, Duration) Notes Start Date End Date Status Atorvastatin Calcium Active gabapentin 50 MG/ML Oral Solution ORAL gabapentin 50 MG/ML Oral SolutionOriginal Medicationgabapentin 50 MG/ML Oral Solution *Reorder from [employer] for eRx and Interaction Alerts* 0 Active tramadol hydrochloride 50 MG Oral Tablet ORAL tramadol hydrochloride 50 MG Oral TabletOriginal Medicationtramadol hydrochloride 50 MG Oral Tablet *Reorder from [employer] for eRx and Interaction Alerts* 0 Active Vitamin D Active busPIRone HCl Active methylPREDNISolone 4 MG Tablet Therapy Pack as directed Orally Active Wegovy Active Social History Social History Additional Details Category Social Info Options Details Migrated Social History Migrated Social History Smoking Status : Current everyday tobacco user , History of tobacco use : Current everyday tobacco user Vital Signs Height 64.00 in 03/11/2025 Height-cm 162.56 cm 03/11/2025 Encounters Encounter Location Date Provider Diagnosis [facility] [place] [address] [place], [place] [id number] 03/11/2025 PAT ANTONIO Pain in right foot M79.671 and Ingrowing nail L60.0 Assessments Encounter Date Diagnosis (ICD Code) Assessment Notes Treatment Notes Treatment Clinical Notes Section Notes 03/11/2025 Pain in right foot (ICD-10 - M79.671) 03/11/2025 Ingrowing nail (ICD-10 - L60.0) Matrixectomy of Nail Border R 1st bilateral borders: I discussed various treatment options to the patient for their toenail issue. I discussed removal of the offending nail border and chemical matrixectomy to prevent regrowth. The patient decided on permanent removal of the nail border. The consent was signed and placed in the patients chart and all questions were answered. Following skin prep, the toe was injected with 3ccs of a 1:1 mixture of 0.5% marcaine plain and 1% lidocaine plain. A digital tourniquet was applied and the offending nail border and nail matrix were removed. Three applications of 89% phenol for 30 seconds each, were applied to the nail matrix to prevent regrowth. The digital tourniquet was released and the toe was cleansed with isopropyl alcohol. A dry sterile compressive dressing was applied and the patient was given soaking instructions. Plan Of Treatment Treatment Notes Assessment Notes Ingrowing nail Matrixectomy of Nail Border R 1st bilateral borders: I discussed various treatment options to the patient for their toenail issue. I discussed removal of the offending nail border and chemical matrixectomy to prevent regrowth. The patient decided on permanent removal of the nail border. The consent was signed and placed in the patients chart and all questions were answered. Following skin prep, the toe was injected with 3ccs of a 1:1 mixture of 0.5% marcaine plain and 1% lidocaine plain. A digital tourniquet was applied and the offending nail border and nail matrix were removed. Three applications of 89% phenol for 30 seconds each, were applied to the nail matrix to prevent regrowth. The digital tourniquet was released and the toe was cleansed with isopropyl alcohol. A dry sterile compressive dressing was applied and the patient was given soaking instructions. Next Appt Details Follow Up: 1 Week,nail check , Reason: Provider Name:PAT Zakiya MAHER, 05/27/2025 03:30:00 PM, [address], [id number], History and Physical Notes * HPI (History of Present Illness) Category Sub-Category Detail Notes Category Not es HPI Follow Up Visit Patient presents for follow up visit for a possible ingrown on the righ big toe bilateral borders. , Patient presents for follow up visit for a mole on the left foot. , ARI: DOLORES Examination Category Sub-Category Detail Notes Category Not es Constitutional Constitutional The patient is a wake, alert, well developed, well groomed and well nourished. Dermatologic Skin findings: bilateral skin i s warm, dry, supple with no breaks in the skin. Ingrown Nail Nail is incurvated o n the, bilateral border of the right great toenail.There is pain on palpation., There is no erythema present. There is no drainage Musculoskeletal Muscle Strength Muscle strength is 5/5 [...] * FRANK TEAGUEDOB: [birth year] (45 yo F)Acc No.[id number]:03/11/2025 Patient: FRANK CORONEL Provider: Hima ANTONIO :1980 A ge:45 Y S ex:Female Date:03/11/2025 Address:[address] [place], [place] [id number] Subjective: * Chief Complaints: * * Possible ingrown nail * HPI: H PI: Follow Up Visit P atient presents for follow up visit for a possible ingrown on the righ big toe bilateral borders. , Patient presents for follow up visit for a mole on the left foot. , MA: DOLORES. * ROS: G eneral / Constitutional: Patient denies f atigue, chills, headache, fever. P atient complains of p ain. M usculoskeletal: Patient denies b roken ankle. P atient complains of?muscle stiffness. P eripheral Vascular: Patient denies u lceration of feet, cold extremities. ? S kin: Patient denies u lcerations, rash. P atient complains of d iscoloration, nail changes, ingrown nails, lumps. N eurologic: Patient denies N umbness. * Medical History: Acid reflux Asthma - mild intermittent Leg/Feet cramps Back Trouble Varicose veins High blood pressure Medical History Verified * Surgical History: No Surgical History documented. Surgical History verified. * Hospitalization/Major Diagno stic Procedure: No Hospitalization Documented. Hospitalization Verified. * Family History: M other: alive. F amily History Verified.. * Social History: M igrated Social History: M igrated Social History: Smoking Status : Current everyday tobacco user , History of tobacco use : Current everyday tobacco user. Social History Verified. * Medications: T akingmethylPREDNISolone 4 MG Tablet Therapy Pack as directed Orally Wegovy Vitamin D busPIRone HCl Atorvastatin Calcium gabapentin 50 MG/ML Oral Solution ORAL , Notes to Pharmacist: gabapentin 50 MG/ML Oral SolutionOriginal Medicationgabapentin 50 MG/ML Oral Solution *Reorder from [employer]a]list games for eRx and Interaction Alerts*tramadol hydrochloride 50 MG Oral Tablet ORAL , Notes to Pharmacist: tramadol hydrochloride 50 MG Oral TabletOriginal Medicationtramadol hydrochloride 50 MG Oral Tablet *Reorder from [employer]a]list games for eRx and Interaction Alerts*Medication List reviewed and reconciled with the patientTaking methylPREDNISolone 4 MG Tablet Therapy Pack as directed Orally Taking Wegovy Taking Vitamin D Taking busPIRone HCl Taking Atorvastatin Calcium Taking gabapentin 50 MG/ML Oral Solution ORAL , Notes to Pharmacist: gabapentin 50 MG/ML Oral SolutionOriginal Medicationgabapentin 50 MG/ML Oral Solution *Reorder from [facility][a]list games for eRx and Interaction Alerts*Taking tramadol hydrochloride 50 MG Oral Tablet ORAL , Notes to Pharmacist: tramadol hydrochloride 50 MG Oral TabletOriginal Medicationtramadol hydrochloride 50 MG Oral Tablet *Reorder from [facility][a]list games for eRx and Interaction Alerts*Medication List reviewed and reconciled with the patient * Allergies: P roduct containing sulfonamide (product): Allergy - Onset Date 03/15/2020yesAllergies Verified. Objective: * Vitals: H t: 64.00 in, Ht-cm: 162.56 cm. * Examination: C onstitutional: Constitutional T he patient is awake, alert, well developed, well groomed and well nourished.. D ermatologic: Skin findings: b ilateral s kin is warm, dry, supple with no breaks in the skin.. Ingrown Nail N ail is incurvated on the, bilateral border of the right great toenail.There is pain on palpation., There is no erythema present. T here is no drainage. M usculoskeletal: Muscle Strength M uscle strength [...] osseous lesions. Assessment: * Assessment: 1. P ain in right foot - M79.671 2 . I ngrowing nail - L60.0 ? Plan: * Treatment: * Immunizations: Immunization record has been reviewed and updated. * Preventive Medicine: Counseling: S moking: X , P atient counselled on the dangers of tobacco use and urged to quit. 1 . * Follow Up: 1 Week,nail check Billing Information: * Procedure Codes: * Electronic signature of EZRA ANTONIO DPM on 05/22/2025 at 03:19 PM PEDIATRIC NURSE PRACTITIONER Sign off status: Pending * Provider: Hima ANTONIO Date: 1 Generated for Jack burgos/Arturo/eTransmitting on: 1 07/23/2024 03:19 PM PEDIATRIC NURSE PRACTITIONER
--- OUTSIDE RECORDS SUMMARY | 2025-03-25 08:50 | XMS_ITS ---
Author Organization [facility] Address [address] [place], [place] [id number] Care Team Providers Care Heel Compressor Name Role Phone PAT ANTONIO Unavailable [phone] Carmen Qiu Unavailable Unavailable REASON FOR VISIT *Nail surgery follow-up Encounters Encounter Location Date Provider Diagnosis [facility] [place] [address] [facility] [address] [place], [place] [id number] 03/25/2025 PAT ANTONIO Plan Of Treatment Next Appt Details Provider Name:PAT MAHER, 05/27/2025 03:30:00 PM, [address] [facility] [address], [place], [id number], Progress Notes * FRANK TEAGUEDOB: [birth year] (45 yo F)Acc No.[id number]:03/25/2025 Patient: Ghislaine FRANK POWERS Provider: Hima ANTONIO :1980 A ge:45 Y S ex:Female Date:03/25/2025 Address:[address] [place] [id number] Subjective: * Chief Complaints: * * Nail surgery follow-up Billing Information: * Procedure Codes: * Electronic signature of EZRA ANTONIO DPM on 05/22/2025 at 03:17 PM SECURITY ASSISTANT Sign off status: Pending * Provider: Hima ANTONIO Date: Generated for Jack burgos/Arturo/eTransmitting on: 1 07/23/2024 03:17 PM SECURITY ASSISTANT
--- OUTSIDE RECORDS SUMMARY | 2025-04-01 08:50 | XMS_ITS ---
Author Organization [facility] Address [address] [place], [place] [phone] Care Team Providers Care Publishing Agent Name Role Phone PAT ANTONIO Unavailable [phone] Carmen Qiu Unavailable Unavailable REASON FOR VISIT *Orthotic pick-up Encounters Encounter Location Date Provider Diagnosis [facility] [place] [address] [address] [facility] [address] [place], [place] [phone] 04/01/2025 PAT ANTONIO Plan Of Treatment Next Appt Details Provider Name:PAT MAHER, 05/27/2025 03:30:00 PM, [address] [facility] [address], [place], [id number], Progress Notes * FRANK TEAGUEDOB: [birth year] (45 yo F)Acc No.[id number]:04/01/2025 Patient: Ghislaine FRANK POWERS Provider: Hima ANTONIO :1980 A ge:45 Y S ex:Female Date:04/01/2025 Address:[address] [place] [phone] Subjective: * Chief Complaints: * * Orthotic pick-up Billing Information: * Procedure Codes: * Electronic signature of EZRA ANTONIO DPM on 05/22/2025 at 03:19 PM SCUBA DIVER Sign off status: Pending * Provider: Hima ANTONIO Date: Generated for Jack burgos/Arturo/eTransmitting on: 1 07/23/2024 03:19 PM SCUBA DIVER
--- OUTSIDE RECORDS SUMMARY | 2025-05-06 09:10 | XMS_ITS ---
Author Organization [facility] Address [address] [place], [place] [phone] Care Team Providers Care Registered Client Associate Name Role Phone MARISELA PAT Unavailable [phone] Carmen Qiu Unavailable Unavailable REASON FOR VISIT *Possible ingrown nail / orthotic pickle cutter Medications Medication SIG (Take, Route, Frequency, Duration) Notes Start Date End Date Status Vitamin D Active Wegovy Active Atorvastatin Calcium Active busPIRone HCl Active gabapentin 50 MG/ML Oral Solution ORAL gabapentin 50 MG/ML Oral SolutionOriginal Medicationgabapentin 50 MG/ML Oral Solution *[facility] for eRx and Interaction Alerts* 0 Active methylPREDNISolone 4 MG Tablet Therapy Pack as directed Orally Active tramadol hydrochloride 50 MG Oral Tablet ORAL tramadol hydrochloride 50 MG Oral TabletOriginal Medicationtramadol hydrochloride 50 MG Oral Tablet *Reorder from [facility] for eRx and Interaction Alerts* 0 Active Encounters Encounter Location Date Provider Diagnosis [facility] [place] [address] [facility] [address] [place], [place] [phone] 05/06/2025 PAT ANTONIO Plan Of Treatment Next Appt Details Provider Name:PAT MAHER, 05/27/2025 03:30:00 PM, [address] [facility], [place], [place], [phone], Progress Notes * FRANK TEAGUEDOB: [birth year] (45 yo F)Acc No.[id number]:05/06/2025 Patient: FRANK CORONEL Provider: Hima ANTONIO :1980 A ge:45 Y S ex:Female Date:05/06/2025 Address:[address] [place], [place] [phone] Subjective: * Chief Complaints: * * Possible ingrown nail / orthotic pickle cutter * Medications: T akingmethylPREDNISolone 4 MG Tablet Therapy Pack as directed Orally Wegovy Vitamin D busPIRone HCl Atorvastatin Calcium gabapentin 50 MG/ML Oral Solution ORAL , Notes to Pharmacist: gabapentin 50 MG/ML Oral SolutionOriginal Medicationgabapentin 50 MG/ML Oral Solution *Reorder from [facility] for eRx and Interaction Alerts*tramadol hydrochloride 50 MG Oral Tablet ORAL , Notes to Pharmacist: tramadol hydrochloride 50 MG Oral TabletOriginal Medicationtramadol hydrochloride 50 MG Oral Tablet *Reorder from [facility] for eRx and Interaction Alerts*Taking methylPREDNISolone 4 MG Tablet Therapy Pack as directed Orally Taking Wegovy Taking Vitamin D Taking busPIRone HCl Taking Atorvastatin Calcium Taking gabapentin 50 MG/ML Oral Solution ORAL , Notes to Pharmacist: gabapentin 50 MG/ML Oral SolutionOriginal Medicationgabapentin 50 MG/ML Oral Solution *Reorder from [facility] for eRx and Interaction Alerts*Taking tramadol hydrochloride 50 MG Oral Tablet ORAL , Notes to Pharmacist: tramadol hydrochloride 50 MG Oral TabletOriginal Medicationtramadol hydrochloride 50 MG Oral Tablet *Reorder from [facility] for eRx and Interaction Alerts* Billing Information: * Procedure Codes: * Electronic signature of EZRA ANTONIO DPM on 05/22/2025 at 03:19 PM HOGSHEAD HEAD MATCHER Sign off status: Pending * Provider: Hima ANTONIO Date: 07/06/2024 Generated for Jack Avilez/[place] on: 07/23/2024 03:19 PM HOGSHEAD HEAD MATCHER
--- OUTSIDE RECORDS SUMMARY | 2025-05-20 08:50 | XMS_ITS ---
Author Organization [facility] Address [address] [place], [place] [id number] Care Team Providers Care Yard Switch Operator Name Role Phone PAT ANTONIO Unavailable [phone] Carmen Qiu Unavailable Unavailable Allergies Allergen (clinical drug ingredient) Drug/Non Drug Allergy documented on EMR Reaction Allergy Type Onset Date Status Substance with sulfonamide structure and antibacterial mechanism of action (substance) Product containing sulfonamide (product) (uncoded) Unknown Allergy 03/15/2020 active REASON FOR VISIT *Possible ingrown nail/ orthotic curing pickling packer and biopsy Medications Medication SIG (Take, Route, Frequency, Duration) Notes Start Date End Date Status tramadol hydrochloride 50 MG Oral Tablet ORAL tramadol hydrochloride 50 MG Oral TabletOriginal Medicationtramadol hydrochloride 50 MG Oral Tablet *Reorder from [employer] for eRx and Interaction Alerts* 0 Active Wegovy Active methylPREDNISolone 4 MG Tablet Therapy Pack as directed Orally Active gabapentin 50 MG/ML Oral Solution ORAL gabapentin 50 MG/ML Oral SolutionOriginal Medicationgabapentin 50 MG/ML Oral Solution *Reorder from [employer] for eRx and Interaction Alerts* 0 Active Vitamin D Active Atorvastatin Calcium Active busPIRone HCl Active Social History Social History Additional Details Category Social Info Options Details Migrated Social History Migrated Social History Smoking Status : Current everyday tobacco user , History of tobacco use : Current everyday tobacco user Vital Signs Height 64.00 in 05/20/2025 Weight 245 lbs 05/20/2025 BMI 42.05 kg/m2 05/20/2025 Height-cm 162.56 cm 05/20/2025 Weight-kg 111.13 kg 05/20/2025 Encounters Encounter Location Date Provider Diagnosis [facility] [address] [facility] [address] [place], [place] [id number] 05/20/2025 PAT ANTONIO Ingrowing nail L60.0 ; Pain in left toe(s) M79.675 ; Plantar fascial fibromatosis M72.2 and Neoplasm of uncertain behavior of skin D48.5 Assessments Encounter Date Diagnosis (ICD Code) Assessment Notes Treatment Notes Treatment Clinical Notes Section Notes 05/20/2025 Ingrowing nail (ICD-10 - L60.0) Matrixectomy of Nail Border L 1st bilateral borders: I discussed various treatment [...] and the patient was given soaking instructions. 05/20/2025 Pain in left toe(s) (ICD-10 - M79.675) 05/20/2025 Plantar fascial fibromatosis (ICD-10 - M72.2) Orthotic Dispense: The orthotic devices were dispensed and fitted. It was noted that the orthotic conformed well to the patient's foot in the subtalar joint neutral position. The patient was educated on the device's use, as well as the gradual break-in period for the device. 05/20/2025 Neoplasm of uncertain behavior of skin (ICD-10 - D48.5) Skin Biopsy: The area was prepped and local anesthesia was administered consisting of 3ccs of 0.5% marcaine with epinephrine. A 4mm punch biopsy was then obtained from the area following aseptic technique. This was appropriately labeled and sent for pathology specimen. The surgery site was then dressed with sterile gauze. Patient was educated on wound care. Follow-up in 7-14 days for wound check and review pathology. Plan Of Treatment Treatment Notes Assessment Notes Ingrowing nail Matrixectomy of Nail Border L 1st bilateral borders: I discussed various treatment [...] and the patient was given soaking instructions. Plantar fascial fibromatosis Orthotic Dispense: The orthotic devices were dispensed and fitted. It was noted that the orthotic conformed well to the patient's foot in the subtalar joint neutral position. The patient was educated on the device's use, as well as the gradual break-in period for the device. Neoplasm of uncertain behavior of skin Skin Biopsy: The area was prepped and local anesthesia was administered consisting of 3ccs of 0.5% marcaine with epinephrine. A 4mm punch biopsy was then obtained from the area following aseptic technique. This was appropriately labeled and sent for pathology specimen. The surgery site was then dressed with sterile gauze. Patient was educated on wound care. Follow-up in 7-14 days for wound check and review pathology. Next Appt Details Follow Up: 1 Week,nail check , Reason: Provider Name:PAT MAHER, 05/27/2025 03:30:00 PM, [address] [facility], 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 Dermatologic Skin findings: bilateral skin i s warm, dry, supple with no breaks in the skin. left 4th lateral distal digit has a neoplasm of uncertain timeline but she recalls having it as a child and would like it removed. The lesion is calloway in color and is 3.5mm x 3.5 mm with flat surface and clear outline. no pain, no fluctuance, no bleeding. Ingrown Nail Nail is incurvated o n the, bilateral border of the left great toenail.There is pain on palpation., There is no erythema present. There is no drainage Musculoskeletal Muscle Strength Muscle strength is 5/5 in regards to dorsiflexion, plantarflexion, inversion, and eversion in bilateral lower extremities. Pain on palpation There is mild pain o n palpation of medial foot at the right posterior tibial tendon and insertion of Achilles tendon right. There is pain with range of motion Plantar Fascia There is pain on pal pation to the, medial band of the bilateral plantar fascia, near its attachment to the calcaneus Neurologic Mulders sign: bilateral, negative Gross sensation Gross sensation is i ntact to light touch. X-Ray Right Foot reviewed 3 views (AP, medial oblique and lateral view) weight bearing right foot, Normal: No evidence of fracture, dislocation, or other osseous lesions Vascular Dorsalis pedis pulse: bilateral, 2/4 Posterior tibial pulse: bilaterally, 2/4 Progress Notes * FRANK TEAGUEDOB: [birth year] (45 yo F)Acc No.[id number]:05/20/2025 Patient: FRANK CORONEL Provider: Hima ANTONIO :1980 A ge:45 Y S ex:Female Date:05/20/2025 Address:[address] [place], [place] [id number] Subjective: * Chief Complaints: * * Possible ingrown nail/ orthotic curing pickling packer and biopsy * HPI: H PI: New Complaint E stablished patient presents with a new complaint., Patient complains of an issue to the left foot, patient has a mole looking brown spot that need biopsied and also has a posssible ingrown that has been bothering her for years, Patient denies any injury., MA: . * ROS: G eneral / Constitutional: Patient [...] Verified. * Family History: M other: alive. N on-Contributory.. * Social History: M igrated Social History: [...] Medicationgabapentin 50 MG/ML Oral Solution *Reorder from [employer] for eRx and Interaction Alerts*tramadol hydrochloride 50 MG Oral Tablet ORAL , Notes to Pharmacist: tramadol hydrochloride 50 MG Oral TabletOriginal Medicationtramadol hydrochloride 50 MG Oral Tablet *Reorder from [employer] for eRx and Interaction Alerts*Medication List reviewed and reconciled with the patientTaking methylPREDNISolone 4 MG Tablet Therapy Pack as directed Orally Taking Wegovy Taking Vitamin D Taking busPIRone HCl Taking Atorvastatin Calcium Taking gabapentin 50 MG/ML Oral Solution ORAL , Notes to Pharmacist: gabapentin 50 MG/ML Oral SolutionOriginal Medicationgabapentin 50 MG/ML Oral Solution *Reorder from [employer] for eRx and Interaction Alerts*Taking tramadol hydrochloride 50 MG Oral Tablet ORAL , Notes to Pharmacist: tramadol hydrochloride 50 MG Oral TabletOriginal Medicationtramadol hydrochloride 50 MG Oral Tablet *Reorder from [employer] for eRx and Interaction Alerts*Medication List reviewed [...] supple with no breaks in the skin. left 4th lateral distal digit has a neoplasm of uncertain timeline but she recalls having it as a child and would like it removed. The lesion is calloway in color and is 3.5mm x 3.5 mm with flat surface and clear outline. no pain, no fluctuance, no bleeding.. Ingrown Nail N ail is incurvated on the, bilateral border of the left great toenail.There is pain on palpation., There is no erythema present. T here is no drainage. M usculoskeletal: Muscle Strength M uscle strength is 5/5 in regards to dorsiflexion, plantarflexion, inversion, and eversion in bilateral lower extremities.. Pain on palpation T here is mild pain on palpation of medial foot at the right posterior tibial tendon and insertion of Achilles tendon right. T here is pain with range of motion. Plantar Fascia T here is pain on palpation to the, medial band of the bilateral plantar fascia, near its attachment to the calcaneus. N eurologic: Mulders sign: b ilateral, negative. Gross sensation G ross sensation is intact to light touch..? V ascular: Dorsalis pedis pulse: b ilateral, 2/4. Posterior tibial pulse: b ilaterally, 2/4. X -Ray: Right Foot r eviewed 3 views (AP, medial oblique and lateral view) weight bearing right foot, Normal: No evidence of fracture, dislocation, or other osseous lesions. Assessment: * Assessment: 1. I ngrowing nail - L60.0 (Primary) 2 . P ain in left toe(s) - M79.675? 3. P lantar fascial fibromatosis - M72.2 4 . N eoplasm of uncertain behavior of skin - D48.5 Plan: * Treatment: 2. P lantar fascial fibromatosis Notes: Orthotic Dispense: The orthotic devices were dispensed and fitted. It was noted that the orthotic conformed well to the patient's foot in the subtalar joint neutral position. The patient was educated on the device's use, as well as the gradual break-in period for the device. 3. N eoplasm of uncertain behavior of skin Notes: Skin Biopsy: The area was prepped and local anesthesia was administered consisting of 3ccs of 0.5% marcaine with epinephrine. A 4mm punch biopsy was then obtained from the area following aseptic technique. This was appropriately labeled and sent for pathology specimen. The surgery site was then dressed with sterile gauze. Patient was educated on wound care. Follow-up in 7-14 days for wound check and review pathology. * Follow Up: 1 Week,nail check Billing Information: * Procedure Codes: * Electronic signature of EZRA ANTONIO DPM on 05/22/2025 at 03:18 PM RN MIDWIFE Sign off status: Pending * Provider: Hima ANTONIO Date: 07/21/2024 Generated for Jack burgos/Arturo/[place] on: 07/23/2024 03:18 PM RN MIDWIFE
--- OUTSIDE RECORDS SUMMARY | 2025-05-22 15:18 | XMS_ITS | Patient Health Record ---
Author Organization [facility] Address [address] [place], [place] [id number] Care Team Providers Care Counselor Supervisor Name Role Phone PAT ANTONIO Unavailable [phone] Carmen Qiu Unavailable Unavailable Allergies Allergen (clinical drug ingredient) Drug/Non Drug Allergy documented on EMR Reaction Allergy Type Onset Date Status Substance with sulfonamide structure and antibacterial mechanism of action (substance) Product containing sulfonamide (product) (uncoded) Unknown Allergy 03/15/2020 active Reason For Referral No Information Medications Medication SIG (Take, Route, Frequency, Duration) Notes Start Date End Date Status tramadol hydrochloride 50 MG Oral Tablet ORAL tramadol hydrochloride 50 MG Oral TabletOriginal Medicationtramadol hydrochloride 50 MG Oral Tablet *Reorder from [employer] for eRx and Interaction Alerts* 0 Active Wegovy Active methylPREDNISolone 4 MG Tablet Therapy Pack as directed Orally Active Atorvastatin Calcium Active gabapentin 50 MG/ML Oral Solution ORAL gabapentin 50 MG/ML Oral SolutionOriginal Medicationgabapentin 50 MG/ML Oral Solution *Reorder from [employer] for eRx and Interaction Alerts* 0 Active Vitamin D Active busPIRone HCl Active Social History Social History Additional Details Category Social Info Options Details Migrated Social History Migrated Social History Smoking Status : Current everyday tobacco user , History of tobacco use : Current everyday tobacco user Vital Signs Height-cm 162.56 cm 05/20/2025 Weight-kg 111.13 kg 05/20/2025 Height 64.00 in 05/20/2025 Weight 245 lbs 05/20/2025 BMI 42.05 kg/m2 05/20/2025 Encounters Encounter Location Date Provider Diagnosis [address] [phone] 01/15/2025 PAT ANTONIO Posterior tibial tendinitis, right leg M76.821 ; Posterior tibial tendinitis of left lower extremity M76.822 ; Achilles tendinitis, right leg M76.61 ; Achilles tendinitis of left lower extremity M76.62 ; Tinea unguium B35.1 ; Pain in right foot M79.671 ; Left foot pain M79.672 ; Plantar fascial fibromatosis M72.2 and Ingrowing nail L60.0 [facility] [place] [address] [address] [place] [id number] 02/11/2025 PAT ANTONIO Posterior tibial tendinitis, right leg M76.821 ; Posterior tibial tendinitis, left leg M76.822 ; Pain in right foot M79.671 and Achilles tendinitis, right leg M76.61 [facility] [place] [address] [address] [place] [id number] 03/04/2025 PAT ANTONIO Posterior tibial tendinitis, right leg M76.821 ; Posterior tibial tendinitis, left leg M76.822 ; Pain in right foot M79.671 ; Achilles tendinitis, right leg M76.61 and Plantar fasciitis M72.2 [facility] [place] [address] [address] [place] [phone] 03/11/2025 PAT ANTONIO Pain in right foot M79.671 and Ingrowing nail L60.0 [facility] [place] [id number] [id number] 05/20/2025 PAT ANTONIO Ingrowing nail L60.0 ; Pain in left toe(s) M79.675 ; Plantar fascial fibromatosis M72.2 and Neoplasm of uncertain behavior of skin D48.5 Assessments Encounter Date Diagnosis (ICD Code) Assessment Notes Treatment Notes Treatment Clinical Notes Section Notes 01/15/2025 Posterior tibial tendinitis of left lower extremity (ICD-10 - M76.822) The patient was scanned for custom orthotics while held in subtalar joint neutral position. 02/11/2025 Posterior tibial tendinitis, right leg (ICD-10 [...] left posterior tibial tendon medial foot 03/04/2025 Posterior tibial tendinitis, right leg (ICD-10 [...] injected left posterior tibial tendon medial foot 01/15/2025 Posterior tibial tendinitis, right leg (ICD-10 - M76.821) Posterior Tibialis Tendon Dysfunction: I discussed anti-inflammatory treatment options and various means of immobilization with the patient. I educated the patient on icing and stretching, supportive shoegear, and the use of orthotic devices and bracing. 03/11/2025 Pain in right foot (ICD-10 - M79.671) 05/20/2025 Ingrowing nail (ICD-10 - L60.0) Matrixectomy [...] the gradual break-in period for the device. 03/11/2025 Ingrowing nail (ICD-10 - L60.0) Matrixectomy [...] and the patient was given soaking instructions. 03/04/2025 Pain in right foot (ICD-10 - M79.671) TriLock Ankle Brace: A Trilok ankle brace was fitted and dispensed. The patient was instructed in its use. 02/11/2025 Pain in right foot (ICD-10 - M79.671) TriLock Ankle Brace: A Trilok ankle brace was fitted and dispensed. The patient was instructed in its use. 01/15/2025 Achilles tendinitis, right leg (ICD-10 - M76.61) improving with stretches and trilock brace 02/11/2025 Achilles tendinitis, right leg (ICD-10 - M76.61) 03/04/2025 Achilles tendinitis, right leg (ICD-10 - M76.61) 01/15/2025 Achilles tendinitis of left lower extremity (ICD-10 - M76.62) 05/20/2025 Neoplasm of uncertain behavior of skin [...] days for wound check and review pathology. 03/04/2025 Plantar fasciitis (ICD-10 - M72.2) 01/15/2025 Tinea unguium (ICD-10 - B35.1) 01/15/2025 [...] right 1st digit nail Plan Of Treatment Next Appt Details Provider Name:PAT MAHER, 05/27/2025 03:30:00 PM, [address] [facility], [place], [place], [id number], Insurance Providers Payer Name Payer Address Payer Phone Subscriber Number Group Number Insured Name Patient Relationship to Insured Coverage Start Date Coverage End Date [facility] [place] [facility] [place] ATTN CLAIMS [address] [place] [address] [id number] FRANK TEAGUE Self - patient is the insured Medical (General) History Medical History History ICD Code acid reflux asthma - mild intermittent Leg/Feet cramps Back Trouble varicose veins high blood pressure
--- OUTSIDE RECORDS SUMMARY | 2025-05-22 15:19 | XMS_ITS | Clinical Summary ---
Author Organization [facility] Address [address] [place] [address] Care Team Providers Care Agile Qa Tester Name Role Phone None, Provider MD Primary [...] on file Legal Sex Female 1:11 PM CROSS ENTERPRISE INTEGRATOR Gender Identity Not on file Sexual Orientation Not on file Last Filed Vital Signs Vital Sign Reading Time Taken Comments Blood Pressure 127/81 06/10/2020 8:51 AM CROSS ENTERPRISE INTEGRATOR Pulse 80 06/10/2020 8:51 AM CROSS ENTERPRISE INTEGRATOR Temperature - - Respiratory Rate 16 06/10/2020 8:51 AM CROSS ENTERPRISE INTEGRATOR Oxygen Saturation 99% 06/10/2020 8:51 AM CROSS ENTERPRISE INTEGRATOR Inhaled Oxygen Concentration - - Weight 103.9 kg (229 lb) 06/10/2020 8:10 AM CROSS ENTERPRISE INTEGRATOR Height 162.6 cm (5' 4) 06/10/2020 8:10 AM CROSS ENTERPRISE INTEGRATOR Body Mass Index 39.31 06/10/2020 8:10 AM CROSS ENTERPRISE INTEGRATOR Plan of Treatment Health Maintenance Due Date [...] Mammogram Screening 2018 COVID-19 Vaccine ( season) 2025 Influenza Adult (#1) 2025 Hepatitis A Vaccines Aged Out No long er eligible based on patient's age to complete this topic Meningococcal B Vaccine Aged Out No l onger eligible based on patient's age to complete this topic Meningococcal Vaccine Aged Out No belia rosalva eligible based on patient's age to complete this topic RSV Immunizations Under 20 Months Aged Out No longer eligible based on patient's age to complete this topic Insurance Care Teams Agile Qa Tester Relationship Specialty Start Date End Date None, Provider, PCP - General 07/30/18
[2025-05-22 15:27] LABS: Alanine Aminotransferase 20 U/L (6-35); Albumin Level 4.0 g/dL (3.5-5.1); Alkaline Phosphatase 106 U/L (38-126); Anion Gap 9 mmol/L (4-12); Aspartate Amino Transferase 23 U/L (14-36); Bilirubin,Total 0.3 mg/dL (0.2-1.3); Blood Urea Nitrogen 9 mg/dL (7-17); Calcium 9.2 mg/dL (8.4-10.2); Carbon Dioxide 24 mmol/L (22-30); Chloride 105 mmol/L (98-107); Cholesterol 154 mg/dL (0-200); Estimated Glomerular Filt Rate > 60; Glucose 63 mg/dL (65-110); HDL Direct 46 mg/dL; Osmolality Calculated 282 mOsm/kg (285-295); Potassium 3.9 mmol/L (3.4-5.0); Sodium 138 mmol/L (137-145); Total Protein 6.8 g/dL (6.3-8.2); Triglycerides 149 mg/dL (<150)
== END 2025-05-22 14:38 | disposition home or self-care (01) ==
LOC: CHSLAB 14:38
PROVIDERS: PCP Nurse Practitioner Family; Visit Provider Nurse Practitioner Family
DX: E78.5 Hyperlipidemia, unspecified (principal)
CPT/HCPCS: 36415; 80053; 80061